=== PATIENT | female | born 1955 | race Caucasian/White ===

== ENCOUNTER 2020-06-16 07:35 | Outpatient (CLI) | payer MEDICARE, SELFPAY ==
--- NOTE | 2020-06-19 12:55 | WPDSIXMINUTE ---
Six Minute Walk Six Minute Walk: The patients O2 sats started at 98% and dropped as low as 96% Total walk distance 91.44 meters conclusion: This patient does not qualify for home oxygen use
== END 2020-06-16 07:36 | disposition home or self-care (01) ==
PROVIDERS: PCP Family Medicine; Visit Provider Nurse Practitioner Family
DX: J96.10 Chronic respiratory failure, unspecified whether with hypoxia or hypercapnia (principal)
CPT/HCPCS: 94618

== ENCOUNTER → 2021-03-10 01:16 | Outpatient (CLI) | payer MEDICARE, SELFPAY ==
[2021-03-10 16:44] LABS: SARS-CoV-2 RNA PCR Negative
== END ==
PROVIDERS: PCP Family Medicine; Visit Provider Internal Medicine Gastroenterology
DX: Z01.812 Encounter for preprocedural laboratory examination (principal); Z20.822 Contact with and (suspected) exposure to COVID-19
CPT/HCPCS: C9803; U0003; U0005

== ENCOUNTER 2021-03-14 00:21 | Day surgery (SDC) | payer MEDICARE, SELFPAY ==
[2021-02-26 11:30] VITALS: BMI 26.1
[2021-03-14 06:19] VITALS: BMI 25.6
[2021-03-14] MEDS: LACTATED RINGERS 1,000 ML 150 ML IV CONT (06:36)
[2021-03-14 06:37] VITALS: BP 126/75; PULSE 86; RESP 20; TEMP 36.8; O2SAT 97
[2021-03-14 06:37] LABS: Glucose Point of Care 150 mg/dl (65-105)
--- NOTE | 2021-03-14 06:57 | WPDGICN ---
Assessment and Plan Assessment and plan (1) Family history of colon cancer in mother: Code(s): Z80.0 - Family history of malignant neoplasm of digestive organs Status: Acute Assessment and Plan: Patient presents for surveillance colonoscopy because of a family history of colon cancer in her mother. Plan is for colonoscopy now and at 5 year intervals further recommendations will be given after endoscopy. GI Consult Note Consult date/time: 03/14/21 06:57 HPI: Kristy Amaya is a 65 year old female Presents for screening colonoscopy. Patient reports that her mother had colon cancer. Patient states that her own weight appetite bowel movements are normal. She denies abdominal pain. She has had no blood in her bowel movements. Her last colonoscopy was 2013. She presents today for screening colonoscopy. Patient's past medical history is significant for multiple sclerosis this left her somewhat weak. Patient also has a past medical history of a bile duct injury during cholecystectomy. She has required biliary stents in the past but none recently. Most recent follow-up reveals that liver function test apparently returned to normal with good liver function. Review of Systems Review of Systems: All systems reviewed & are unremarkable except as noted in HPI and below PMFSH Past Medical History Medical History Ambulatory dysfunction Chronic respiratory failure DVT prophylaxis Essential hypertension with goal blood pressure less than 150/90 Neuromyelitis optica Obstructive sleep apnea Osteoporosis Viral illness Family History Family History Father Diabetes mellitus Family history of congestive heart failure Mother Diabetes mellitus Hypertension Family history of Alzheimer's disease Social History Social History Social History: pt started earyly 70's and quit early 90's (73-92) Smoking packs per day: 2 Smoking cigarettes per day: 40.0 Years smoked: 20 Smoking pack-years: 40.00 Smoking status: Former smoker Smoking end date: 09/08/91 Additional smoking assessment comments: 21 pack year Alcohol intake: current Drinks per week: 2 Living arrangements: alone Spiritual care concerns: No Meds Home Medications and Allergies Home Medications Medication Instructions Recorded Confirmed Type Ca-D3-mag dh-pzic-vwp-marisol-bor 1 tablet PO BID 07/08/19 02/26/21 History Prolia 60 mg SUBCUT [id number] 07/08/19 02/26/21 History amlodipine 5 mg PO DAILY 07/08/19 02/26/21 History baclofen 10 mg PO BID 07/08/19 02/26/21 History fluoxetine [Prozac] 40 mg PO DAILY 07/08/19 02/26/21 History irbesartan 300 mg PO DAILY 07/08/19 02/26/21 History triamterene-hydrochlorothiazid 1 cap PO DAILY 07/08/19 02/26/21 History [Dyazide] mecobalamin (vitamin B12) 1,000 1,000 mcg SUBLINGUAL DAILY 05/26/20 02/26/21 History mcg disintegrating tablet,sublingual omega-3 fatty acids 1,000 mg 1,000 mg PO DAILY 05/26/20 02/26/21 History capsule sod picosulf 10 mg-magnes 3.5 160 ml PO BID #160 ml 02/12/21 02/26/21 Rx gram-citric 12 gram/160 mL oral solution simvastatin 40 mg tablet 20 mg PO HS tablet 02/15/21 02/26/21 History rituximab [Rituxan] IV [id number] 02/26/21 History Allergies Allergy/AdvReac Type Severity Reaction Status Date / Time methylprednisolone Allergy Other Verified 03/14/21 06:17 [From Solu-Medrol] Vital Signs Vital Signs - 24 hr 03/14/21 06:37 Temperature 98.3 F Pulse Rate 86 Respiratory Rate 20 Blood Pressure 126/75 Pulse Oximetry 97 Exam Narrative: Exam Narrative: Physical exam reveals patient be alert. Vital signs stable. HEENT exam is unremarkable. Patient is anicteric. Lungs are clear to auscultation and percussion. Heart is without murmur or extra sounds. Abdominal
--- NOTE | 2021-03-14 07:16 | WPDANESEPPF ---
Anes - Initial Pre Proc Eval Procedure: Operation Date: 03/14/21 07:30 Proposed Procedures p Screening Colonoscopy - Regan Leach MD Date/Time: 03/14/21 07:16 Surgeon: Regan Leach MD Pre Op Diagnosis: neoplasm screening Patient Data Age: 65 Gender: F Height: 1.63 m Weight: 67.7 kg Last Vital Signs Temp 98.3 F 03/14/21 06:37 Pulse 86 03/14/21 06:37 Resp 20 03/14/21 06:37 BP 126/75 03/14/21 06:37 Pulse Ox 97 03/14/21 06:37 Allergies Allergy/AdvReac Type Severity Reaction Status Date / Time methylprednisolone Allergy Other Verified 03/14/21 06:17 [From [facility]] Home Medications Medication Instructions Recorded Confirmed Type Ca-D3-mag cr-pvzk-vey-marisol-bor 1 tablet PO BID 07/08/19 02/26/21 History Prolia 60 mg SUBCUT [id number] 07/08/19 02/26/21 History amlodipine 5 mg PO DAILY 07/08/19 02/26/21 History baclofen 10 mg PO BID 07/08/19 02/26/21 History fluoxetine [Prozac] 40 mg PO DAILY 07/08/19 02/26/21 History irbesartan 300 mg PO DAILY 07/08/19 02/26/21 History triamterene-hydrochlorothiazid 1 cap PO DAILY 07/08/19 02/26/21 History [Dyazide] mecobalamin (vitamin B12) 1,000 1,000 mcg SUBLINGUAL DAILY 05/26/20 02/26/21 History mcg disintegrating tablet,sublingual omega-3 fatty acids 1,000 mg 1,000 mg PO DAILY 05/26/20 02/26/21 History capsule sod picosulf 10 mg-magnes 3.5 160 ml PO BID #160 ml 02/12/21 02/26/21 Rx gram-citric 12 gram/160 mL oral solution simvastatin 40 mg tablet 20 mg PO HS tablet 02/15/21 02/26/21 History rituximab [Rituxan] IV [id number] 02/26/21 History Laboratory Tests 03/14/21 06:34 POC Capillary Glucose 150 mg/dl H mg/dl (65-105) Patient hx anesthesia problems: none Family hx anesthesia problems: none PMFSH Past Medical History Medical History Ambulatory dysfunction Chronic respiratory failure DVT prophylaxis Essential hypertension with goal blood pressure less than 150/90 Neuromyelitis optica Obstructive sleep apnea Osteoporosis Viral illness Family History Family History Father Diabetes mellitus Family history of congestive heart failure Mother Diabetes mellitus Hypertension Family history of Alzheimer's disease Social History Social History Social History: pt started earyly 70's and quit early 90's (-) Smoking packs per day: 2 Smoking cigarettes per day: 40.0 Years smoked: 20 Smoking pack-years: 40.00 Smoking status: Former smoker Smoking end date: 09/08/91 Additional smoking assessment comments: 21 pack year Alcohol intake: current Drinks per week: 2 Living arrangements: alone Spiritual care concerns: No Anes - Eval Final PreProcedure Day of Procedure 03/14/21 07:16 Patient weight: overweight Heart: regular rate and rhythm Lungs: clear to auscultation Airway: Mallampati scale class II Neurological: alert and oriented Last oral intake: >/= 8 hours ASA classification: III Emergent: no Anesthetic plan: proceed Anesthesia type and monitoring: general GIVS and standard monitoring Informed Consent: The patient's anesthetic plan and its attendant risks and benefits were discussed with the patient/family/POA. Questions were solicited and answers provided to the satisfaction of the patient/family/POA.
[2021-03-14 07:46] VITALS: BP 111/70; PULSE 72; RESP 22; O2SAT 96
[2021-03-14 07:56] VITALS: BP 110/64; PULSE 74; RESP 20; O2SAT 96
[2021-03-14 08:06] VITALS: BP 107/63; PULSE 73; RESP 18; O2SAT 96
== END 2021-03-14 08:15 | disposition home or self-care (01) ==
PROVIDERS: PCP Family Medicine; Visit Provider Internal Medicine Gastroenterology
PROC: 0DJD8ZZ Inspection of Lower Intestinal Tract, Via Natural or Artificial Opening Endoscopic (ICD-10-PCS; CPT 45378; principal; 2021-03-14 07:30)
DX: Z12.11 Encounter for screening for malignant neoplasm of colon (principal); Z80.0 Family history of malignant neoplasm of digestive organs; I10 Essential (primary) hypertension; J96.10 Chronic respiratory failure, unspecified whether with hypoxia or hypercapnia; G47.33 Obstructive sleep apnea (adult) (pediatric); M81.0 Age-related osteoporosis without current pathological fracture; G36.0 Neuromyelitis optica [Devic]; Z87.891 Personal history of nicotine dependence; Z79.899 Other long term (current) drug therapy
CPT/HCPCS: G0105; 82948; J2704; J7120

== ENCOUNTER 2021-09-08 15:42 | Inpatient (IN) | payer MEDICARE, SELFPAY ==
[2021-09-08] VITALS (8 sets, daily range): BP systolic 97–135; BP diastolic 39–71; PULSE 66–112; RESP 16–22; TEMP 36.7–37.3; O2SAT 90–99; BMI 27.6
--- NOTE | ~2021-09-08 | XR_ITS ---
EXAMINATION: XR chest 1V portable EXAM DATE: 09/24/2021 08:05 INDICATION: COVID FU TECHNIQUE: Portable AP frontal chest x-ray was obtained. Comparison is made to prior examination from 09/20/2021. FINDINGS: Extensive left-sided, moderate right-sided airspace disease, overall improvement in right-s ided density. Probably no significant change in the left-sided airspace disease. No pneumothorax. Car diomediastinal silhouette is normal. Mild thoracic scoliosis. IMPRESSION: 1. Bilateral COVID pneumonia, improvement on the right hip probably unchanged on the left. 2. No pneumothorax. Reviewed, dictated and finalized at location G. IRATORY TECH
--- NOTE | ~2021-09-08 | XR_ITS ---
EXAMINATION: XR chest 1V portable DATE: 09/13/2021 13:20 INDICATION: Shortness of breath. TECHNIQUE: A single frontal view of the chest was obtained. COMPARISON: Chest 2 views 09/08/2021, CT abdomen and pelvis 09/08/2021 FINDINGS: There are airspace opacities in the lower lung zones. There is a small left pleural effusio n. No pneumothorax. The heart size is normal. IMPRESSION: 1. Worsened airspace opacities in the lower lung zones, consistent with atelectasis versus pneumonia. 2. New small left pleural effusion. Reviewed, dictated and finalized at location A. SHING MACHINE TENDER IMPRESSION: 1. Worsened airspace opacities in the lower lung zones, consistent with atelect asis versus pneumonia. 2. New small left pleural effusion.
--- NOTE | ~2021-09-08 | XR_ITS ---
EXAMINATION: XR chest 1V portable EXAM DATE: 09/18/2021 08:56 INDICATION: COVID TECHNIQUE: Portable AP frontal chest x-ray was obtained. Comparison is made to prior examination from 09/13/2021. FINDINGS: Moderate amount of bilateral ill-defined acute airspace disease, with mild improvement in t he lower lung zones but development of additional ill-defined airspace disease in both midlung zones, probably COVID pneumonia given history provided. Small left pleural effusion. Cardiomediastinal silh ouette is normal. Mild to moderate thoracic dextroscoliosis. No pneumothorax. IMPRESSION: 1. Moderate amount of ill-defined airspace disease consistent with COVID pneumonia. 2. Small left pleural effusion. Reviewed, dictated and finalized at location A. IX WORKER IMPRESSION: 1. Moderate amount of ill-defined airspace disease consistent with COVID pneum onia. 2. Small left pleural effusion.
--- NOTE | ~2021-09-08 | XR_ITS ---
EXAMINATION: XR chest 2V EXAM DATE: 09/08/2021 21:22 INDICATION: Weakness, vomiting since this morning. TECHNIQUE: Frontal and lateral projections of the chest obtained and reviewed. Comparison is made to prior examination from 07/08/2019. FINDINGS: The lungs are clear. There are no pleural effusions. The cardiomediastinal silhouette is within normal limits. There is no pneumothorax suspected. The bones and soft tissues are unremarkab le. IMPRESSION: No acute cardiopulmonary findings. Reviewed, dictated and finalized at location A. MIDWIFE
--- NOTE | ~2021-09-08 | CT_ITS ---
EXAMINATION: CT abdomen pelvis w con EXAM DATE: 09/08/2021 20:04 INDICATION: Nonlocalized abdominal pain. Emesis. TECHNIQUE: Spiral CT of the abdomen and pelvis was performed following intravenous injection of 100 m L Omnipaque 350. Axial, coronal and sagittal images of the abdomen and pelvis were reviewed. The do se-length product (DLP) for this examination was 526.18 mGy-cm. The exposure was tailored according to patient size (auto mA exposure control), and iterative reconstruction (ASIR) was used as additiona l dose reduction technique. There is no prior study for comparison. FINDINGS: Low-density left adrenal gland lesion measuring 1.2 cm, statistically most likely adenoma b ut not meeting density criteria on this postcontrast exam. Mild nonspecific fat stranding surrounding the left adrenal gland. Liver, spleen, pancreas are unremarkable. There are surgical clips in the g allbladder fossa. Some biliary duct dilation which is common finding following cholecystectomy. Por gopi and splenic veins are patent. Kidneys enhance symmetrically. There is no hydronephrosis. There is a 3 cm left renal cyst. There is 1.7 cm fibroid. No adnexal mass. There is bladder diverticulum anteriorly measuring about 2.7 cm with moderate bladder distention. There is no retroperitoneal or p elvic lymphadenopathy. There is mild scattered arteriosclerotic disease. The appendix is normal. The stomach and small bowel are unremarkable. There is expected amount of c olonic stool. No free intraperitoneal gas. The heart is normal in size. There are no pericardial or pleural effusions. Right lower lobe calcified granuloma. Mild emphysema. There is total left h ip arthroplasty. Sclerotic focus in the right iliac crest measuring 1 cm, probably bone island given that no other sclerotic foci are present IMPRESSION: 1. No acute intra-abdominal findings. 2. Mild nonspecific fat stranding surrounding left adrenal gland. Small left adrenal mass most likel y adenoma. 3. Bladder diverticulum. 4. Fibroid. Reviewed, dictated and finalized at location A. CAL BILLING CLERK IMPRESSION: 1. No acute intra-abdominal findings. 2. Mild nonspecific fat stranding surrounding left adrenal gland. Small left a drenal mass most likely adenoma. 3. Bladder diverticulum. 4. Fibroid.
--- NOTE | ~2021-09-08 | US_ITS ---
EXAMINATION: US abdomen limited DATE: 09/15/2021 14:21 INDICATION: Elevated liver function tests TECHNIQUE: Multiple grayscale and Doppler ultrasound images of the abdomen were obtained. COMPARISON: CT, 09/08/2021 FINDINGS: Bowel gas obscures visualization of the pancreas. The visualized portions of the pancreas a re unremarkable. The liver is normal with normal echogenicity and echotexture. No surface nodularity. Normal hepatopetal flow in the main portal vein. The gallbladder is surgically absent. The normal co mmon bile duct measures 4 mm. There was no sonographic Richards sign. IMPRESSION: 1. No sonographic correlate for the patient's symptoms. Reviewed, dictated and finalized at location F. OYEE COMMUNICATIONS COORDINATOR
--- NOTE | ~2021-09-08 | MR_ITS ---
EXAMINATION: MR MRCP wo/w con/w 3D wo ind DATE: 09/17/2021 10:26 INDICATION: Abnormal liver function tests. TECHNIQUE: Magnetic resonance imaging (MRI) of the abdomen was performed without and with 15 mL Multi Conrad intravenous contrast. Sequences included coronal T2-weighted FS FSE, coronal T2-weighted FSE, a xial T1-weighted LAVA, coronal FS FIESTA, axial dual-echo T1-weighted SPGR, coronal lava-FLEX, sagitt al T2-weighted FSE, axial T2-weighted FSE, and axial DWI. Thick-slab T2-weighted FSE images were obta ined for magnetic resonance cholangiopancreatography (MRCP). Maximum intensity projection 3-D reconst ructions of the volumetric data were created by the technologist. Postcontrast sequences included cor onal LAVA-flex and time course of axial T1-weighted LAVA. COMPARISON: Abdomen ultrasound 09/15/2021, CT abdomen and pelvis 09/08/2021 FINDINGS: ABDOMEN MRI: There are small pleural effusions, right worse than left. 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 There are areas of increased T2-weighted signal int ensity and increased diffusion-weighted signal intensity and hyperenhancement in anterior segment rig ht hepatic lobe. The gallbladder is absent. The spleen, pancreas, and right adrenal gland are normal. There is thickening of left adrenal gland, likely benign. There are cysts in the kidneys measuring u p to 2.9 cm on the left. There are no dilated loops of bowel. There is trace ascites. There are no pa thologically enlarged lymph nodes. ABDOMEN MRCP: The common duct is normal and measures 6 mm. No choledocholithiasis. IMPRESSION: 1. 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 Abnormal signal in anterior segment right hepatic lobe, consistent with ischemia/infarct. 2. Small pleural effusions, right worse than left. Reviewed, dictated and finalized at location B. RVISOR BOATBUILDERS WOOD IMPRESSION: 1. 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 Abnor mal signal in anterior segment right hepatic lobe, consistent with ischemia/inf arct. 2. Small pleural effusions, right worse than left.
--- NOTE | ~2021-09-08 | XR_ITS ---
EXAMINATION: XR chest 1V portable DATE: 09/20/2021 05:44 INDICATION: COVID TECHNIQUE: frontal view of the chest was obtained. COMPARISON: Chest radiograph dated 09/18/2021 FINDINGS: No significant change attending for differences in technique in interstitial and groundglass opacitie s throughout both lungs. More dense and bandlike discoid atelectasis/scarring at the left lower lung zone. Tiny calcified nodule at the lateral right lower lung zone consistent with old granulomatous di sease. No pleural effusion or pneumothorax. The cardiomediastinal silhouette is normal. Mild lower th oracic levocurvature. Severe left glenohumeral osteoarthritis. IMPRESSION: 1. No significant change in diffuse bilateral lung disease which could represent pneumonia, pulmonary edema or combination thereof. Reviewed, dictated and finalized at location A. ECTION CARD CLERK IMPRESSION: 1. No significant change in diffuse bilateral lung disease which could represen t pneumonia, pulmonary edema or combination thereof.
[2021-09-08 18:26] LABS: Hematocrit 42.6 % (37.0-47.0); Hemoglobin 14.2 g/dL (12.0-15.0); Mean Corpuscular HGB Conc 33.3 g/dl (32-36); Mean Corpuscular Hemoglobin 31.6 pg (26-34); Mean Corpuscular Volume 94.9 fl (80-100); Mean Platelet Volume 10.2 fl (7.4-10.4); Platelet Count Result 235 k/mm3 (150-375); Red Blood Count 4.49 M/mm3 (4.2-5.4); Red Cell Distribution Width 14.1 % (11.5-14.5); White Blood Count 20.9 K/mm3 (4.5-10.0)
[2021-09-08 18:36] LABS: INR 1.2; Lactic Acid Reflex 2.4 mmol/L (0.7-2.1)
[2021-09-08 18:37] LABS: Alanine Aminotransferase 56 U/L (4-35); Albumin Level 4.4 g/dL (3.5-5.1); Alkaline Phosphatase 236 U/L (38-126); Anion Gap 10 mmol/L (8-16); Aspartate Amino Transferase 53 U/L (14-36); Bilirubin,Total 1.6 mg/dL (0.2-1.3); Blood Urea Nitrogen 32 mg/dL (7-17); Calcium 10.3 mg/dL (8.4-10.2); Carbon Dioxide 31 mmol/L (22-30); Chloride 99 mmol/L (98-107); Creatine Kinase 55 U/L (30-135); Estimated CRCL calculation 35 ml/min; Estimated Glomerular Filt Rate 45; Glucose 131 mg/dL (65-110); Partial Thromboplastin Time 31.5 SECONDS (22.3-36.8); Potassium 3.2 mmol/L (3.4-5.0); Sodium 140 mmol/L (137-145)
[2021-09-08 18:50] LABS: Band Neutrophils Percent 18 % (0-6); Monocytes Percent Manual 1 % (3-9); Neutrophils Absolute Manual 20.48 K/mm3 (1.7-7.2); Neutrophils Percent Manual 80 % (46-73); Platelet Estimate Adequate (Adequate); Total Cells Counted 100
[2021-09-08 18:54] LABS: Add Urine Microscopic? YES; Appearance Urine Clear (Clear); Bacteria Urine Trace /hpf; Bilirubin Urine Negative (Negative); Blood Urine 1+ (Negative); Color Urine Yellow (Yellow); Glucose Urine UA Negative (Negative); Ketones Urine Negative (Negative); Leukocyte Esterase Ur 2+ LEU/UL (Negative); Mucus Urine Rare /lpf; Nitrate Urine Negative (Negative); Protein Urine Negative (Negative); Specific Grav Ur 1.011 (1.001-1.035); Squamous Epithelial Cell Urine Rare /hpf (Few); Urobilinogen Urine Negative mg/dL (<2.0); WBC Urine >75 /hpf
[2021-09-08] MEDS: SODIUM CHLORIDE 0.9% IV 1,000 ML 999 ML IV CONT (19:09)
[2021-09-08] MEDS: SODIUM CHLORIDE 0.9% IV 2,000 ML 999 ML (20:02)
[2021-09-08] MEDS: SODIUM CHLORIDE 0.9% IV 2,100 ML/1,000 ML BAG 475.69 ML IV CONT (20:02)
--- NOTE | 2021-09-08 20:39 | ED.WEAKNESS ---
HPI - Weakness General Chief complaint: Weakness Stated complaint: N/V, fever Time Seen by Provider: 09/08/21 18:31 History of Present Illness HPI Narrative: Patient is a 65-year-old female who presents to the ER with weakness. Unable to get out of bed today and walk. Patient reports diarrhea x1 over the last day. No urinary frequency urgency or dysuria. No runny nose or sore throat or productive cough. She has been vaccinated against COVID-19 and has had her booster. She did have an antibody test after initial COVID-19 vaccination series and she did not make antibodies, she believes this is because she is immunosuppressed. She has a MS type syndrome for which she is receiving rituximab. Related Data Home Medications Medication Instructions Recorded Confirmed Ca-D3-mag rh-suvu-usu-marisol-bor 1 tablet PO BID 07/08/19 02/26/21 Prolia 60 mg SUBCUT [id number] 07/08/19 02/26/21 amlodipine 5 mg PO DAILY 07/08/19 02/26/21 baclofen 10 mg PO BID 07/08/19 02/26/21 fluoxetine [Prozac] 40 mg PO DAILY 07/08/19 02/26/21 irbesartan 300 mg PO DAILY 07/08/19 02/26/21 triamterene-hydrochlorothiazid 1 cap PO DAILY 07/08/19 02/26/21 [Dyazide] mecobalamin (vitamin B12) 1,000 1,000 mcg SUBLINGUAL DAILY 05/26/20 02/26/21 mcg disintegrating tablet,sublingual omega-3 fatty acids 1,000 mg 1,000 mg PO DAILY 05/26/20 02/26/21 capsule simvastatin 40 mg tablet 20 mg PO HS tablet 02/15/21 02/26/21 rituximab [Rituxan] IV [id number] 02/26/21 Allergies Allergy/AdvReac Type Severity Reaction Status Date / Time methylprednisolone Allergy Other Verified 03/14/21 06:17 [From Solu-Medrol] Review of Systems Review of Systems: All systems reviewed & are unremarkable except as noted in HPI and below Constitutional: Constitutional: Denies chills, Reports fever(s) and Reports weakness ENT: Denies nasal congestion and Denies sore throat Gastrointestinal: Gastrointestinal: Denies abdominal pain, Reports diarrhea, Denies nausea and Denies vomiting Genitourinary: Genitourinary: Denies nocturia, Denies dysuria and Denies flank pain Neurologic: Denies focal weakness, Denies numbness and Reports weakness PMFSH Past Medical History Medical History Ambulatory dysfunction Chronic respiratory failure DVT prophylaxis Essential hypertension with goal blood pressure less than 150/90 Neuromyelitis optica Obstructive sleep apnea Osteoporosis Viral illness Family History Family History Father Diabetes mellitus Family history of congestive heart failure Mother Diabetes mellitus Hypertension Family history of Alzheimer's disease Social History Social History Social History: pt started earyly 's and quit early 's (-) Smoking packs per day: 2 Smoking cigarettes per day: 40.0 Years smoked: 20 Smoking pack-years: 40.00 Smoking status: Former smoker Smoking end date: 09/08/91 Additional smoking assessment comments: 21 pack year Alcohol intake: current Drinks per week: 2 Spiritual care concerns: No Exam Narrative: GENERAL: Chronically ill-appearing, well-nourished, and in no acute distress. HEAD: Normocephalic, atraumatic. EYES: PERRL and EOMI. ENT: Mucous membranes moist. CHEST: Clear to auscultation. No respiratory distress. HEART: Tachycardic and regular. Normal peripheral pulses. ABDOMEN: Soft, nontender, nondistended. EXTREMITIES: Normal range of motion. No edema. SKIN: Warm, dry, no rash. NEURO: Alert and oriented x3. Course Course Emergency Course: Admit for IV fluids and IV antibiotics. Patient awake alert and oriented x3. Understands lab results. Vital Signs Vital signs: Vital Signs Temperature 99.2 F 09/08/21 15:44 Pulse Rate 112 H 09/08/21 15:44 Respiratory Rate 20 09/08/21 15:44 Blood Pressure 135/59 L
[2021-09-08 21:23] LABS: Reflex Lactic Acid Yes or No Add Lactic
[2021-09-08] MEDS: POTASSIUM CHLORIDE INJ 40 MEQ in SODIUM CHLORIDE 0.9% IV 500 ML 130 MEQ IVPB (21:54)
[2021-09-08 22:56] LABS: Lactic Acid 1.4 mmol/L (0.7-2.1)
[2021-09-09] VITALS (10 sets, daily range): BP systolic 108–147; BP diastolic 45–86; PULSE 66–123; RESP 12–18; TEMP 35.5–37; O2SAT 90–99
--- NOTE | 2021-09-09 00:13 | ADMGEN ---
This patient, Kristy Amaya, was admitted to IMU Room 205-01 on 09/08/21 at 2334. Patient/family oriented to hospital policies and general routines including ID bracelet, bed and alarms, visiting hours, pain management, procedures, bathroom and other care routines, personal items, smoking policy, room service/diet, and visiting hours. Information on how to activate the Rapid Response Team has been discussed. Patient/Family are encouraged to report perceived risks to care and to ask questions if they do not understand what they are told or what they should do.
[2021-09-09] MEDS: SODIUM CHLORIDE 0.9% IV 1,000 ML 125 ML IV CONT (01:01)
--- NOTE | 2021-09-09 04:58 | PM.IMHP ---
H&P: HPI History of Present Illness Date/Time: 09/09/21 04:58 Chief Complaint: ?Could not get out of bed? 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 She reports that on she woke up and was so weak that she could not even roll over in bed. She developed worsening neuropathy which is common when she becomes ill. She spiked a fever of 102. She had decreased oral intake and had some mild nausea but no vomiting. She stayed in bed for most of the day on Friday than on Friday she reported that she felt somewhat better in the morning but in the afternoon she again spiked a high fever. She reports that she has a chronic dry cough that is unchanged from baseline. She denies any rhinorrhea, nasal congestion or sore throat. She received a COVID vaccine and she had her booster in June. She did have antibody testing after her initial COVID vaccine series in did not make antibodies. This is been attributed to her treatment with rituximab. She reports that she is very careful about social contact and has not had any known ill contacts. Review of Systems Review of Systems: 12 systems were reviewed with pertinent positives and negatives per HPI. Except as documented in the HPI, all other systems were reviewed and are negative. [facility] Past Medical History Medical History (Updated 09/09/21 @ 08:06 by Bessy James DO) Ambulatory dysfunction Anxiety and depression Chronic respiratory failure DVT prophylaxis Essential hypertension with goal blood pressure less than 150/90 GI bleed Due to high-dose steroids Neuromyelitis optica (2011) Obstructive sleep apnea Osteoporosis Peripheral neuropathy Type 2 diabetes mellitus Viral illness Surgical History Surgical History (Updated 09/09/21 @ 07:42 by Bessy James DO) Hx of cholecystectomy (~2003) Family History Family History Father Diabetes mellitus Family history of congestive heart failure Mother Diabetes mellitus Family history of Alzheimer's disease Hypertension CLL (chronic lymphocytic leukemia) Sibling CAD (coronary artery disease) Heart problem Lymphoma Diabetes mellitus Hypertension Sibling Heart problem Sibling Breast cancer Family history of Alzheimer's disease Social History Social History (Updated 09/09/21 @ 07:45 by Bessy James DO) Social History: She has been for almost 44 years. 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 She used to smoke 2 packs of cigarettes per day for about 20 years but quit smoking in 1981. She drinks 1-2 alcohol beverages a week at most. She ambulates with a walker. Primary care physician: Dr. Nathan Segal Code status: DNR Surrogate decision maker: Smoking packs per day: 2 Smoking cigarettes per day: 40.0 Years smoked: 20 Smoking pack-years: 40.00 Smoking status: Former smoker Tobacco type: cigarettes Smoking end date: 09/08/91 Additional smoking assessment comments: 21 pack year Alcohol intake: never Drinks per week: 2 Substance use: never Substance use type: does not use Spiritual care concerns: No Meds Home Medications and Allergies Home Medications Medication Instructions Recorded Confirmed Type Ca-D3-mag pi-obkm-tct-marisol-bor 1 tablet PO BID 07/08/19 09/09/21 History amlodipine 5 mg PO HS 07/08/19 09/09/21 History baclofen 10 mg PO QAM 07/08/19 09/09/21 History fluoxetine [Prozac] 40 mg PO DAILY 07/08/19 09/09/21 History irbesartan 300 mg PO HS 07/08/19 09/09/21 History triamterene-hydrochlorothiazid 1 cap PO DAILY 07/08/19 09/09/21 History [Dyazide] mecobalamin (vitamin B12) 1,000 1,000 mcg SUBLINGUAL DAILY 05/26/20 09/09/21 History mcg disintegrating tablet,sublingual omeg
[2021-09-09 05:33] LABS: Hematocrit 34.5 % (37.0-47.0); Hemoglobin 11.3 g/dL (12.0-15.0); Mean Corpuscular HGB Conc 32.8 g/dl (32-36); Mean Corpuscular Hemoglobin 31.8 pg (26-34); Mean Corpuscular Volume 97.2 fl (80-100); Mean Platelet Volume 11.1 fl (7.4-10.4); Platelet Count Result 178 k/mm3 (150-375); Red Blood Count 3.55 M/mm3 (4.2-5.4); Red Cell Distribution Width 14.3 % (11.5-14.5); White Blood Count 31.1 K/mm3 (4.5-10.0)
[2021-09-09 05:43] LABS: Alanine Aminotransferase 72 U/L (4-35); Albumin Level 3.4 g/dL (3.5-5.1); Alkaline Phosphatase 172 U/L (38-126); Anion Gap 9 mmol/L (8-16); Aspartate Amino Transferase 65 U/L (14-36); Bilirubin,Total 0.8 mg/dL (0.2-1.3); Blood Urea Nitrogen 26 mg/dL (7-17); Calcium 8.5 mg/dL (8.4-10.2); Carbon Dioxide 20 mmol/L (22-30); Chloride 111 mmol/L (98-107); Estimated CRCL calculation 47 ml/min; Estimated Glomerular Filt Rate 55; Glucose 165 mg/dL (65-110); Sodium 140 mmol/L (137-145)
[2021-09-09 08:02] LABS: Band Neutrophils Percent 12 % (0-6); Neutrophils Absolute Manual 29.54 K/mm3 (1.7-7.2); Neutrophils Percent Manual 83 % (46-73); Total Cells Counted 100
[2021-09-09 08:03] LABS: Lymphocytes Absolute Manual 0.93 K/mm3 (1.1-4.5); Lymphocytes Percent Manual 3 % (18-44)
[2021-09-09 08:04] LABS: Monocytes Absolute Manual 0.62 K/mm3 (0.1-0.90); Monocytes Percent Manual 2 % (3-9)
[2021-09-09 08:07] LABS: Platelet Estimate Adequate (Adequate)
[2021-09-09] MEDS: OMEGA 3 POLYUNSAT FATTY ACIDS 1 GM CAP PO (08:48)
[2021-09-09] MEDS: FLUoxetine HCL 20 MG CAPSULE 40 MG PO (08:48)
--- NOTE | 2021-09-09 08:52 | PM.IMPN ---
Progress Note: A&P Assessment and Plan (1) Sepsis: Qualifiers: Acute renal failure type: unspecified Sepsis acute organ dysfunction status: with acute organ dysfunction Sepsis type: sepsis due to unspecified organism Severe sepsis acute organ dysfunction type: acute renal failure Severe sepsis shock status: without septic shock Qualified Code(s): A41.9 - Sepsis, unspecified organism; R65.20 - Severe sepsis without septic shock; N17.9 - Acute kidney failure, unspecified Code(s): A41.9 - Sepsis, unspecified organism Status: Acute Assessment and Plan: Will continue with IV fluids. Monitor culture report. (2) Acute UTI: Code(s): N39.0 - Urinary tract infection, site not specified Status: Acute Assessment and Plan: Continue with IV antibiotics. Monitor culture report (3) Hypokalemia: Code(s): E87.6 - Hypokalemia Status: Acute Assessment and Plan: Replace and monitor (4) Essential hypertension: Code(s): I10 - Essential (primary) hypertension Status: Acute Assessment and Plan: Stable on current meds. Subjective Date/time seen: 09/09/21 08:52 Patient was seen during the morning rounds today. Patient complains of having generalized weakness. No shortness of breath or chest pain. No abdominal pain, no nausea, no vomiting. Mood stable. Review of Systems Review of Systems: All systems reviewed & are unremarkable except as noted in HPI and below (the history and physical examination.) Exam Narrative: PHYSICAL EXAM: WEIGHT 73 kg BMI 27.6 General: Chronically ill-appearing, well-nourished HEENT: Mucous membranes are moist, good dentition, pupils are equal and reactive, positive conjunctival pallor Respiratory: Clear to auscultation bilaterally, no increased work of breathing Cardiovascular: Regular rate, regular rhythm, 2+ bilateral radial pedal pulses Gastrointestinal: Soft, nontender, nondistended, positive bowel sounds Skin: Generalized pallor, non jaundice Musculoskeletal: No clubbing, cyanosis or edema, 5/5 sql engineer strength, 5 of 5 strength and state leg Neurological: Alert and oriented, speech is clear, no facial asymmetry Psychiatric: Appropriate mood and affect, pleasant and cooperative : Deferred Hematologic/lymphatic: No anterior cervical or submandibular lymphadenopathy, no petechiae, no bruising Objective Data Vital Signs Vital Signs: Vital Signs - 24 hr 09/08/21 15:44 09/08/21 17:58 09/08/21 20:03 Temperature 37.3 C Pulse Rate 112 H 66 95 Respiratory Rate 20 18 18 Blood Pressure 135/59 L 113/62 97/51 L Pulse Oximetry 95 90 99 09/08/21 23:09 09/08/21 23:22 09/08/21 23:23 Temperature 36.7 C Pulse Rate 79 85 86 Respiratory Rate 20 22 H Blood Pressure 97/71 L Pulse Oximetry 96 96 09/08/21 23:25 09/08/21 23:40 09/09/21 00:00 Temperature 36.9 C Pulse Rate 85 71 79 Respiratory Rate 20 16 Blood Pressure 106/39 L Pulse Oximetry 96 98 09/09/21 02:00 09/09/21 03:24 09/09/21 03:55 Temperature 37.0 C Pulse Rate 70 73 73 Respiratory Rate 17 17 Blood Pressure 109/54 L Pulse Oximetry 99 99 09/09/21 04:00 09/09/21 06:00 09/09/21 08:00 Temperature 36.6 C Pulse Rate 66 69 123 H Respiratory Rate 18 Blood Pressure 134/86 Pulse Oximetry 90 Intake/Output Intake/Output: Intake & Output 09/06/21 09/07/21 09/08/21 09/09/21 23:59 23:59 23:59 23:59 Intake Total 4050 620 Output Total 500 Balance 4050 120 Meds/Results Medications: Active Medications Generic Name Dose Route Start Last Admin Trade Name Freq PRN Reason Stop Dose Admin Acetaminophen 650 mg 09/08/21 21:36 Acetaminophen 325 Mg Tablet PO Q4H PRN Mild Pain (1-3) or Fever Hydrocodone Bitart/Acetaminophen 1 tab 09/08/21 21:36 Hydrocodone/Acetaminophen (*Crx) 5-325 Mg Tablet PO Q4H PRN Pain Rated 4-6 Amlodipine Besylate 5 mg 09/09/21 21:00 Amlodipine Besyl
[2021-09-09] MEDS: SODIUM CHLORIDE 0.9% IV 1,000 ML 83 ML IV CONT ×2 (09:09→23:33)
[2021-09-09] MEDS: PIPERACILLIN/TAZOBACTAM SOD 4.5 GM in SODIUM CHLORIDE 0.9% IV 100 ML 200 ML IVPB ×4 (09:10→23:33)
[2021-09-09] MEDS: BACLOFEN 10 MG TABLET PO (09:11)
[2021-09-09] MEDS: HEPARIN SODIUM 5,000 UNITS/ML VIAL 5000 UNITS SUB-Q ×2 (10:47→20:39)
[2021-09-09] MEDS: ACETAMINOPHEN 325 MG TABLET 650 MG PO (12:53)
[2021-09-09] MEDS: amLODIPine BESYLATE 5 MG TABLET PO (20:39)
[2021-09-09] MEDS: BACLOFEN 10 MG TABLET 20 MG PO (20:39)
[2021-09-09] MEDS: SIMVASTATIN 20 MG TABLET PO (20:40)
[2021-09-10] VITALS: PULSE 74
[2021-09-10] MEDS: ACETAMINOPHEN 325 MG TABLET 650 MG PO (03:01)
[2021-09-10 04:00] VITALS: BP 92/69; PULSE 75; RESP 16; TEMP 37.2; O2SAT 98
[2021-09-10 05:33] LABS: Basophils Absolute Auto 0.1 K/mm3 (0.0-0.1); Basophils Percent Auto 0.2 % (0.2-1.2); Eosinophils Absolute Auto 0.1 K/mm3 (0-0.3); Eosinophils Percent Auto 0.2 % (0-4.4); Hematocrit 34.8 % (37.0-47.0); Hemoglobin 11.5 g/dL (12.0-15.0); Immature Granulocyte Absolute 0.32 K/mm3 (0.00-0.031); Immature Granulocyte Percent A 1.4 % (0-0.5); Lymphocytes Absolute Auto 0.44 K/mm3 (0.9-3.2); Mean Corpuscular Hemoglobin 31.6 pg (26-34); Mean Corpuscular Volume 95.6 fl (80-100); Mean Platelet Volume 11.3 fl (7.4-10.4); Monocytes Percent Auto 4.4 % (2.6-8.5); Neutrophils Absolute Auto 20.7 K/mm3 (1.3-6.7); Neutrophils Percent Auto 91.8 % (45.5-73.1); Platelet Count Result 160 k/mm3 (150-375); Red Blood Count 3.64 M/mm3 (4.2-5.4); Red Cell Distribution Width 14.4 % (11.5-14.5); White Blood Count 22.5 K/mm3 (4.5-10.0)
[2021-09-10 05:47] LABS: Alanine Aminotransferase 74 U/L (4-35); Albumin Level 3.2 g/dL (3.5-5.1); Alkaline Phosphatase 239 U/L (38-126); Anion Gap 10 mmol/L (8-16); Aspartate Amino Transferase 58 U/L (14-36); Bilirubin,Total 1.2 mg/dL (0.2-1.3); Blood Urea Nitrogen 29 mg/dL (7-17); Calcium 8.6 mg/dL (8.4-10.2); Carbon Dioxide 21 mmol/L (22-30); Chloride 109 mmol/L (98-107); Estimated CRCL calculation 48 ml/min; Estimated Glomerular Filt Rate 55; Glucose 108 mg/dL (65-110); Potassium 3.2 mmol/L (3.4-5.0); Sodium 140 mmol/L (137-145)
[2021-09-10] MEDS: PIPERACILLIN/TAZOBACTAM SOD 4.5 GM in SODIUM CHLORIDE 0.9% IV 100 ML 200 ML IVPB ×4 (06:35→23:37)
[2021-09-10 07:55] VITALS: PULSE 57; RESP 18
[2021-09-10 08:00] VITALS: BP 115/48; PULSE 64; RESP 20; TEMP 36.2; O2SAT 98
[2021-09-10] MEDS: FLUoxetine HCL 20 MG CAPSULE 40 MG PO (08:50)
[2021-09-10] MEDS: OMEGA 3 POLYUNSAT FATTY ACIDS 1 GM CAP PO (08:50)
[2021-09-10] MEDS: HEPARIN SODIUM 5,000 UNITS/ML VIAL 5000 UNITS SUB-Q ×2 (08:50→21:47)
[2021-09-10] MEDS: BACLOFEN 10 MG TABLET PO (08:50)
--- NOTE | 2021-09-10 09:41 | PM.IMPN ---
Progress Note: A&P Assessment and Plan (1) Sepsis: Qualifiers: Acute renal failure type: unspecified Sepsis acute organ dysfunction status: with acute organ dysfunction Sepsis type: sepsis due to unspecified organism Severe sepsis acute organ dysfunction type: acute renal failure Severe sepsis shock status: without septic shock Qualified Code(s): A41.9 - Sepsis, unspecified organism; R65.20 - Severe sepsis without septic shock; N17.9 - Acute kidney failure, unspecified Code(s): A41.9 - Sepsis, unspecified organism Status: Acute Assessment and Plan: Will continue with IV fluids. Monitor culture report. (2) Acute UTI: Code(s): N39.0 - Urinary tract infection, site not specified Status: Acute Assessment and Plan: Continue with IV antibiotics. Monitor culture report (3) Hypokalemia: Code(s): E87.6 - Hypokalemia Status: Acute Assessment and Plan: Replace and monitor (4) Essential hypertension: Code(s): I10 - Essential (primary) hypertension Status: Acute Assessment and Plan: Stable on current meds. Additional Plan September 10, 2021 Patient WBC count has decreased to 22. Potassium is slightly low. Plan is to continue with IV antibiotics, replace and monitor potassium. Cultures pending. Subjective Date/time seen: 09/10/21 09:41 Patient was seen during the morning rounds today. Patient is feeling slightly better. No shortness of breath or chest pain. No abdominal pain, nausea, no vomiting. Mood stable. Review of Systems Review of Systems: All systems reviewed & are unremarkable except as noted in HPI and below (the history and physical examination.) Exam Narrative: PHYSICAL EXAM: WEIGHT 73 kg BMI 27.6 General: Chronically ill-appearing, well-nourished HEENT: Mucous membranes are moist, good dentition, pupils are equal and reactive, positive conjunctival pallor Respiratory: Clear to auscultation bilaterally, no increased work of breathing Cardiovascular: Regular rate, regular rhythm, 2+ bilateral radial pedal pulses Gastrointestinal: Soft, nontender, nondistended, positive bowel sounds Skin: Generalized pallor, non jaundice Musculoskeletal: No clubbing, cyanosis or edema, 5/5 crown attacher strength, 5 of 5 strength and state leg Neurological: Alert and oriented, speech is clear, no facial asymmetry Psychiatric: Appropriate mood and affect, pleasant and cooperative : Deferred Hematologic/lymphatic: No anterior cervical or submandibular lymphadenopathy, no petechiae, no bruising Objective Data Vital Signs Vital Signs: Vital Signs - 24 hr 09/09/21 12:00 09/09/21 16:00 09/09/21 20:00 Temperature 35.5 C L 36.8 C 36.9 C Pulse Rate 76 80 105 H Respiratory Rate 18 12 16 Blood Pressure 147/45 H 111/53 L 108/73 Pulse Oximetry 92 90 99 09/10/21 00:00 09/10/21 04:00 09/10/21 07:55 Temperature 37.2 C Pulse Rate 74 75 57 L Respiratory Rate 16 18 Blood Pressure 92/69 L Pulse Oximetry 98 09/10/21 08:00 Temperature 36.2 C L Pulse Rate 64 Respiratory Rate 20 Blood Pressure 115/48 L Pulse Oximetry 98 Intake/Output Intake/Output: Intake & Output 09/07/21 09/08/21 09/09/21 09/10/21 23:59 23:59 23:59 23:59 Intake Total 4050 3260 550 Output Total 900 500 Balance 4050 2360 50 Meds/Results Medications: Active Medications Generic Name Dose Route Start Last Admin Trade Name Freq PRN Reason Stop Dose Admin Acetaminophen 650 mg 09/08/21 21:36 09/10/21 03:01 Acetaminophen 325 Mg Tablet PO 650 mg Q4H PRN Administration Mild Pain (1-3) or Fever Hydrocodone Bitart/Acetaminophen 1 tab 09/08/21 21:36 Hydrocodone/Acetaminophen (*Crx) 5-325 Mg Tablet PO Q4H PRN Pain Rated 4-6 Amlodipine Besylate 5 mg 09/09/21 21:00 09/09/21 20:39 Amlodipine Besylate 5 Mg Tablet PO 5 mg HS NICHOLAS Administration Baclofen 20 mg 09/09/21 21:00 09/09/21 20:39 Baclofen 10 Mg Tabl
[2021-09-10] MEDS: POTASSIUM CHLORIDE 20 MEQ TABLET 40 MEQ PO (10:31)
[2021-09-10] MEDS: SODIUM CHLORIDE 0.9% IV 1,000 ML 83 ML IV CONT (10:31)
[2021-09-10] MEDS: MAGNESIUM OXIDE 400 MG TABLET PO (12:27)
[2021-09-10] MEDS: HYDROcodone/acetaminophen (*CRX) 5-325 MG TABLET 1 TAB PO ×2 (16:22→21:44)
[2021-09-10 19:58] VITALS: BP 130/66; PULSE 70; RESP 14; TEMP 37.3; O2SAT 94
[2021-09-10] MEDS: BACLOFEN 10 MG TABLET 20 MG PO (21:46)
[2021-09-10] MEDS: SIMVASTATIN 20 MG TABLET PO (21:47)
[2021-09-10] MEDS: amLODIPine BESYLATE 5 MG TABLET PO (21:48)
[2021-09-11] MEDS: SODIUM CHLORIDE 0.9% IV 1,000 ML 83 ML IV CONT (02:08)
[2021-09-11 04:12] VITALS: BP 116/51; PULSE 65; RESP 12; TEMP 37; O2SAT 94
[2021-09-11] MEDS: ACETAMINOPHEN 325 MG TABLET 650 MG PO (05:17)
[2021-09-11] MEDS: PIPERACILLIN/TAZOBACTAM SOD 4.5 GM in SODIUM CHLORIDE 0.9% IV 100 ML 200 ML IVPB ×3 (05:19→18:15)
[2021-09-11] MEDS: ONDANSETRON INJ 4 MG/2 ML VIAL IV PUSH (05:22)
[2021-09-11 06:02] LABS: Mean Corpuscular HGB Conc 33.3 g/dl (32-36); Mean Corpuscular Hemoglobin 31.7 pg (26-34); Mean Corpuscular Volume 95.2 fl (80-100); Platelet Count Result 181 k/mm3 (150-375); Red Blood Count 3.78 M/mm3 (4.2-5.4); Red Cell Distribution Width 14.3 % (11.5-14.5); White Blood Count 20.1 K/mm3 (4.5-10.0)
[2021-09-11 06:16] LABS: Alanine Aminotransferase 69 U/L (4-35); Albumin Level 3.4 g/dL (3.5-5.1); Alkaline Phosphatase 328 U/L (38-126); Anion Gap 10 mmol/L (8-16); Aspartate Amino Transferase 42 U/L (14-36); Bilirubin,Total 1.2 mg/dL (0.2-1.3); Blood Urea Nitrogen 25 mg/dL (7-17); Calcium 8.6 mg/dL (8.4-10.2); Carbon Dioxide 21 mmol/L (22-30); Chloride 108 mmol/L (98-107); Estimated CRCL calculation 59 ml/min; Estimated Glomerular Filt Rate > 60; Glucose 129 mg/dL (65-110); Potassium 3.1 mmol/L (3.4-5.0); Sodium 139 mmol/L (137-145)
[2021-09-11 07:39] VITALS: O2SAT 98
[2021-09-11] MEDS: BACLOFEN 10 MG TABLET PO (08:34)
[2021-09-11] MEDS: OMEGA 3 POLYUNSAT FATTY ACIDS 1 GM CAP PO (08:34)
[2021-09-11] MEDS: FLUoxetine HCL 20 MG CAPSULE 40 MG PO (08:34)
[2021-09-11] MEDS: HEPARIN SODIUM 5,000 UNITS/ML VIAL 5000 UNITS SUB-Q ×2 (08:34→21:17)
[2021-09-11] MEDS: MAGNESIUM OXIDE 400 MG TABLET PO (08:34)
[2021-09-11 10:16] LABS: Basophils Absolute Auto 0.1 K/mm3 (0.0-0.1); Basophils Percent Auto 0.3 % (0.2-1.2); Eosinophils Percent Auto 0.2 % (0-4.4); Immature Granulocyte Absolute 0.31 K/mm3 (0.00-0.031); Immature Granulocyte Percent A 1.5 % (0-0.5); Lymphocytes Absolute Auto 0.47 K/mm3 (0.9-3.2); Lymphocytes Percent Auto 2.3 % (18.3-44.2); Monocytes Absolute Auto 0.9 K/mm3 (0.1-0.6); Monocytes Percent Auto 4.5 % (2.6-8.5); Neutrophils Absolute Auto 18.7 K/mm3 (1.3-6.7); Neutrophils Percent Auto 91.2 % (45.5-73.1)
[2021-09-11] MEDS: POTASSIUM CHLORIDE 20 MEQ TABLET 60 MEQ PO (10:31)
[2021-09-11 11:19] LABS: Hepatitis B Surface Antigen Negative (Negative)
[2021-09-11 11:26] LABS: HAV RESULT Negative (Negative); Hepatitis B Core IgM Result Negative (Negative)
[2021-09-11 11:37] LABS: Hepatitis C Virus Antibody Negative (Negative)
--- NOTE | 2021-09-11 12:05 | PM.IMPN ---
Progress Note: A&P Assessment and Plan (1) Sepsis: Qualifiers: Acute renal failure type: unspecified Sepsis acute organ dysfunction status: with acute organ dysfunction Sepsis type: sepsis due to unspecified organism Severe sepsis acute organ dysfunction type: acute renal failure Severe sepsis shock status: without septic shock Qualified Code(s): A41.9 - Sepsis, unspecified organism; R65.20 - Severe sepsis without septic shock; N17.9 - Acute kidney failure, unspecified Code(s): A41.9 - Sepsis, unspecified organism Status: Acute Assessment and Plan: Patient met criteria for sepsis with low blood pressure 90/60, tachycardia at 112, leukocytosis at 20,000, bands cells and elevated lactic acids. Patient started on IV Zosyn #4 for treatment of urinary tract infection and has been tolerating it well other than some diarrhea. Will start a probiotic. Urine culture results showed no growth at this time. Blood cultures negative today. Still monitoring leukocytosis, on arrival was 20,000 and increased to 31,000. Today is back down to 20,000 again. Will recheck CBC with differential tomorrow. Vitals otherwise stable, afebrile, stable blood pressure 116/51, non tachycardic, normal oxygenation on room air. Patient is otherwise feeling better She is otherwise eating and drinking better today will discontinue IV antibiotics. (2) Acute UTI: Code(s): N39.0 - Urinary tract infection, site not specified Status: Acute Assessment and Plan: Continue IV Zosyn at this time. Urine culture and blood cultures are negative. Based on the patient's symptoms and sepsis criteria we are treating a urinary tract infection. (3) Hypokalemia: Code(s): E87.6 - Hypokalemia Status: Acute Assessment and Plan: Hypokalemia at 3.1. Normal magnesium 2.0. Replace and monitor (4) Essential hypertension: Code(s): I10 - Essential (primary) hypertension Status: Acute Assessment and Plan: Stable on current meds. 116/51. Continue monitoring. Time Spent With Patient Time with patient: 25 - 35 minutes Subjective Date/time seen: 09/11/21 12:05 Interval history: Date of service 09/11/2021: Patient reports feeling much better since yesterday afternoon. She is eating a little bit better and feeling better. She has been having diarrhea associated with the IV Zosyn. Denies any fevers, chills, nausea, vomiting, abdominal pain, chest pain, shortness of breath, cough, leg swelling, calf pain, or any other symptoms at this time. Review of Systems Review of Systems: All systems reviewed & are unremarkable except as noted in HPI and below (the history and physical examination.) Exam Narrative: General: 65 year-old woman sitting up in the chair talking on the phone. Appears comfortable. In no acute distress. Skin: No jaundice or cyanosis. Good skin turgor. Neck: Full range of motion. Supple. Respiratory: Lungs are clear to auscultation bilaterally. No bony chest wall tenderness. Cardiovascular: The heart has a regular rate and rhythm without murmur. Lower extremities: No lower extremity edema. Distal pulses are easily palpated. No calf tenderness to palpation. Gastrointestinal: The abdomen is soft, nontender and nondistended with active bowel sounds. Psychiatric: Lucid and oriented. Memory intact. Neurologic: No focal deficits. Speech is clear. No facial drooping. Objective Data Vital Signs Vital Signs: Vital Signs - 24 hr 09/10/21 19:58 09/11/21 04:12 09/11/21 07:39 Temperature 99.1 F 98.6 F Pulse Rate 70 65 Respiratory Rate 14 12 Blood Pressure 130/66 116/51 L Pulse Oximetry 94 94 98 Intake/Output Intake/Output: Intake & Output 09/08/21 09/09/21 09/10/21
[2021-09-11] MEDS: HYDROcodone/acetaminophen (*CRX) 5-325 MG TABLET 1 TAB PO (15:28)
[2021-09-11] MEDS: SACCHAROMYCES BOULARDII 250 MG CAPSULE PO ×2 (15:29→21:16)
[2021-09-11 16:00] VITALS: BP 127/60; PULSE 74; RESP 18; TEMP 36.5; O2SAT 90
[2021-09-11 21:15] VITALS: BP 129/66; PULSE 75; RESP 16; TEMP 37.2; O2SAT 94
[2021-09-11] MEDS: SIMVASTATIN 20 MG TABLET PO (21:16)
[2021-09-11] MEDS: amLODIPine BESYLATE 5 MG TABLET PO (21:16)
[2021-09-11] MEDS: BACLOFEN 10 MG TABLET 20 MG PO (21:17)
[2021-09-12] MEDS: HYDROcodone/acetaminophen (*CRX) 5-325 MG TABLET 1 TAB PO ×2 (00:18→08:55)
[2021-09-12] MEDS: PIPERACILLIN/TAZOBACTAM SOD 4.5 GM in SODIUM CHLORIDE 0.9% IV 100 ML IVPB ×2 (00:20→06:08)
[2021-09-12 05:02] VITALS: BP 141/59; PULSE 81; RESP 18; TEMP 37.4; O2SAT 93
[2021-09-12 06:41] LABS: Basophils Absolute Auto 0.1 K/mm3 (0.0-0.1); Basophils Percent Auto 0.6 % (0.2-1.2); Eosinophils Absolute Auto 0.1 K/mm3 (0-0.3); Eosinophils Percent Auto 0.6 % (0-4.4); Hematocrit 34.6 % (37.0-47.0); Hemoglobin 11.1 g/dL (12.0-15.0); Immature Granulocyte Absolute 0.37 K/mm3 (0.00-0.031); Immature Granulocyte Percent A 2.8 % (0-0.5); Immature Platelet Fraction Pct 7.6 % (0.9-11.2); Lymphocytes Absolute Auto 0.51 K/mm3 (0.9-3.2); Lymphocytes Percent Auto 3.8 % (18.3-44.2); Mean Corpuscular HGB Conc 32.1 g/dl (32-36); Mean Corpuscular Hemoglobin 30.8 pg (26-34); Mean Corpuscular Volume 96.1 fl (80-100); Monocytes Absolute Auto 0.9 K/mm3 (0.1-0.6); Monocytes Percent Auto 6.5 % (2.6-8.5); Neutrophils Absolute Auto 11.4 K/mm3 (1.3-6.7); Neutrophils Percent Auto 85.7 % (45.5-73.1); Platelet Count Result 235 k/mm3 (150-375); Red Cell Distribution Width 14.4 % (11.5-14.5); White Blood Count 13.3 K/mm3 (4.5-10.0)
[2021-09-12 07:00] LABS: Alanine Aminotransferase 55 U/L (4-35); Albumin Level 3.2 g/dL (3.5-5.1); Alkaline Phosphatase 316 U/L (38-126); Anion Gap 7 mmol/L (8-16); Aspartate Amino Transferase 26 U/L (14-36); Blood Urea Nitrogen 19 mg/dL (7-17); CRP 13.5 mg/dL (<1.0); Calcium 8.5 mg/dL (8.4-10.2); Carbon Dioxide 22 mmol/L (22-30); Chloride 109 mmol/L (98-107); Estimated CRCL calculation 59 ml/min; Estimated Glomerular Filt Rate > 60; Glucose 142 mg/dL (65-110); Magnesium 2.2 mg/dL (1.6-2.3); Potassium 3.4 mmol/L (3.4-5.0); Sodium 138 mmol/L (137-145)
[2021-09-12] MEDS: OMEGA 3 POLYUNSAT FATTY ACIDS 1 GM CAP PO (08:55)
[2021-09-12] MEDS: BACLOFEN 10 MG TABLET PO (08:55)
[2021-09-12] MEDS: HEPARIN SODIUM 5,000 UNITS/ML VIAL 5000 UNITS SUB-Q ×2 (08:55→20:30)
[2021-09-12] MEDS: FLUoxetine HCL 20 MG CAPSULE 40 MG PO (08:55)
[2021-09-12] MEDS: SACCHAROMYCES BOULARDII 250 MG CAPSULE PO ×2 (08:55→20:30)
[2021-09-12] MEDS: MAGNESIUM OXIDE 400 MG TABLET PO (08:55)
[2021-09-12] MEDS: POTASSIUM CHLORIDE 20 MEQ TABLET 40 MEQ PO (08:56)
[2021-09-12] MEDS: CYANOCOBALAMIN 1,000 MCG TABLET 1000 MCG PO (09:41)
--- NOTE | 2021-09-12 10:28 | PM.IMPN ---
Progress Note: A&P Assessment and Plan (1) Sepsis: Qualifiers: Acute renal failure type: unspecified Sepsis acute organ dysfunction status: with acute organ dysfunction Sepsis type: sepsis due to unspecified organism Severe sepsis acute organ dysfunction type: acute renal failure Severe sepsis shock status: without septic shock Qualified Code(s): A41.9 - Sepsis, unspecified organism; R65.20 - Severe sepsis without septic shock; N17.9 - Acute kidney failure, unspecified Code(s): A41.9 - Sepsis, unspecified organism Status: Acute Assessment and Plan: Patient met criteria for sepsis with low blood pressure 90/60, tachycardia at 112, leukocytosis at 20,000, bands cells and elevated lactic acids. Patient started on IV Zosyn #5 for treatment of urinary tract infection and has been tolerating it well other than some diarrhea. Continue a probiotic. Urine culture results showed no growth at this time. Blood cultures negative today. Still monitoring leukocytosis, on arrival was 20,000 and increased to 31,000. Today is back down to 13,000, with improvement of neutrophil count to 75% no band cells. Will recheck CBC with differential tomorrow. Vitals otherwise stable, low-grade fever 99.3, stable blood pressure 141/59, non tachycardic, normal oxygenation on room air. Patient is otherwise feeling better * CRP is elevated at 13.5, I will recheck this tomorrow make sure everything is trending down with the IV antibiotics. She is otherwise eating and drinking better today will discontinue IV antibiotics. (2) Acute UTI: Code(s): N39.0 - Urinary tract infection, site not specified Status: Acute Assessment and Plan: Continue IV Zosyn at this time. Urine culture and blood cultures are negative. Based on the patient's symptoms and sepsis criteria we are treating a urinary tract infection. (3) Hypokalemia: Code(s): E87.6 - Hypokalemia Status: Acute Assessment and Plan: Hypokalemia at 3.4. Normal magnesium 2.2. Replace and monitor (4) Essential hypertension: Code(s): I10 - Essential (primary) hypertension Status: Acute Assessment and Plan: Stable on current meds. 141/59. Continue monitoring. Time Spent With Patient Time with patient: 25 - 35 minutes Subjective Date/time seen: 09/12/21 10:28 Interval history: Date of service 09/12/2021: Patient reports feeling 70% better. She still feels slight fevers at times. She is eating better, getting around well but still feels generalized weakness. Reports diarrhea and abdominal cramping has resolved with the probiotic. Denies any nausea, vomiting, abdominal pain, chest pain, shortness of breath, cough, leg swelling, calf pain, or any other symptoms at this time. Review of Systems Review of Systems: All systems reviewed & are unremarkable except as noted in HPI and below (the history and physical examination.) Exam Narrative: General: 65 year-old woman laying on her right side in bed taking a nap. Appears comfortable. In no acute distress. Skin: No jaundice or cyanosis. Good skin turgor. Neck: Full range of motion. Supple. Respiratory: Lungs are clear to auscultation bilaterally. No bony chest wall tenderness. Cardiovascular: The heart has a regular rate and rhythm without murmur. Lower extremities: No lower extremity edema. Distal pulses are easily palpated. No calf tenderness to palpation. Gastrointestinal: The abdomen is soft, nontender and nondistended with active bowel sounds. Psychiatric: Lucid and oriented. Memory intact. Neurologic: No focal deficits. Speech is clear. No facial drooping. Objective Data Vital Signs Vital Signs: Vital Signs - 24 hr 09/11/21 16:00 09/11/21 21:15 09/12/21 05:
[2021-09-12] MEDS: ACETAMINOPHEN 325 MG TABLET 650 MG PO (12:13)
[2021-09-12] MEDS: ONDANSETRON INJ 4 MG/2 ML VIAL IV PUSH (12:13)
[2021-09-12] MEDS: PIPERACILLIN/TAZOBACTAM SOD 4.5 GM in SODIUM CHLORIDE 0.9% IV 100 ML 200 ML IVPB ×3 (12:14→23:37)
[2021-09-12 14:00] VITALS: BP 127/54; PULSE 69; RESP 24; TEMP 36.2; O2SAT 94
[2021-09-12] MEDS: amLODIPine BESYLATE 5 MG TABLET PO (20:30)
[2021-09-12] MEDS: BACLOFEN 10 MG TABLET 20 MG PO (20:30)
[2021-09-12] MEDS: SIMVASTATIN 20 MG TABLET PO (20:30)
[2021-09-12 22:00] VITALS: BP 145/63; PULSE 80; RESP 18; TEMP 36.4; O2SAT 91
[2021-09-13] MEDS: HYDROcodone/acetaminophen (*CRX) 5-325 MG TABLET 1 TAB PO ×3 (02:21→17:50)
[2021-09-13] MEDS: PIPERACILLIN/TAZOBACTAM SOD 4.5 GM in SODIUM CHLORIDE 0.9% IV 100 ML 200 ML IVPB ×3 (05:12→17:51)
[2021-09-13 05:31] VITALS: BP 134/62; PULSE 65; RESP 16; TEMP 36.1; O2SAT 96
[2021-09-13 06:46] LABS: Basophils Absolute Auto 0.1 K/mm3 (0.0-0.1); Basophils Percent Auto 0.6 % (0.2-1.2); Eosinophils Absolute Auto 0.1 K/mm3 (0-0.3); Eosinophils Percent Auto 1.3 % (0-4.4); Hematocrit 32.9 % (37.0-47.0); Hemoglobin 10.8 g/dL (12.0-15.0); Immature Granulocyte Absolute 0.32 K/mm3 (0.00-0.031); Immature Granulocyte Percent A 3.6 % (0-0.5); Lymphocytes Absolute Auto 0.41 K/mm3 (0.9-3.2); Lymphocytes Percent Auto 4.7 % (18.3-44.2); Mean Corpuscular HGB Conc 32.8 g/dl (32-36); Mean Corpuscular Hemoglobin 30.9 pg (26-34); Mean Platelet Volume 10.8 fl (7.4-10.4); Monocytes Absolute Auto 0.6 K/mm3 (0.1-0.6); Monocytes Percent Auto 7.3 % (2.6-8.5); Neutrophils Absolute Auto 7.2 K/mm3 (1.3-6.7); Neutrophils Percent Auto 82.5 % (45.5-73.1); Nucleated Red Blood Cells Perc 0.3 % (0.0-0.2); Platelet Count Result 222 k/mm3 (150-375); Red Cell Distribution Width 14.5 % (11.5-14.5); White Blood Count 8.8 K/mm3 (4.5-10.0)
[2021-09-13 06:58] LABS: Alanine Aminotransferase 50 U/L (4-35); Albumin Level 3.1 g/dL (3.5-5.1); Alkaline Phosphatase 392 U/L (38-126); Anion Gap 6 mmol/L (8-16); Aspartate Amino Transferase 39 U/L (14-36); Bilirubin,Total 1.1 mg/dL (0.2-1.3); Blood Urea Nitrogen 15 mg/dL (7-17); Calcium 8.6 mg/dL (8.4-10.2); Carbon Dioxide 26 mmol/L (22-30); Chloride 107 mmol/L (98-107); Estimated CRCL calculation 59 ml/min; Estimated Glomerular Filt Rate > 60; Glucose 109 mg/dL (65-110); Potassium 3.5 mmol/L (3.4-5.0); Sodium 139 mmol/L (137-145)
[2021-09-13 09:35] VITALS: O2SAT 94
[2021-09-13] MEDS: SACCHAROMYCES BOULARDII 250 MG CAPSULE PO ×2 (09:54→20:48)
[2021-09-13] MEDS: CYANOCOBALAMIN 1,000 MCG TABLET 1000 MCG PO (09:54)
[2021-09-13] MEDS: HEPARIN SODIUM 5,000 UNITS/ML VIAL 5000 UNITS SUB-Q ×2 (09:54→20:49)
[2021-09-13] MEDS: FLUoxetine HCL 20 MG CAPSULE 40 MG PO (09:54)
[2021-09-13] MEDS: MAGNESIUM OXIDE 400 MG TABLET PO (09:54)
[2021-09-13] MEDS: OMEGA 3 POLYUNSAT FATTY ACIDS 1 GM CAP PO (09:54)
[2021-09-13] MEDS: BACLOFEN 10 MG TABLET PO (09:59)
[2021-09-13] MEDS: POTASSIUM CHLORIDE 20 MEQ TABLET 40 MEQ PO (10:00)
--- NOTE | 2021-09-13 10:38 | PM.IMPN ---
Progress Note: A&P Assessment and Plan (1) Acute respiratory failure with hypoxia: Code(s): J96.01 - Acute respiratory failure with hypoxia Status: Acute Assessment and Plan: 09/13/21: Patient was found to be hypoxic at 88% on room air. She was put on 2 L of oxygen. This morning she was able to be weaned down to room air but when the nurse checked her again she was 86%. She was placed on 2.5 L of oxygen and now 94%. Will get chest x-ray-she does have some crackles and leg swelling so could be fluid overload from the IV fluid she had received a few days ago. Will also order IV Lasix 20 mg x1 Will check inflammatory markers She is on subQ heparin for DVT prophylaxis so PE is low at this time unless everything also comes back negative Continue monitoring. Supplemental oxygen as needed. (2) Sepsis: Qualifiers: Acute renal failure type: unspecified Sepsis acute organ dysfunction status: with acute organ dysfunction Sepsis type: sepsis due to unspecified organism Severe sepsis acute organ dysfunction type: acute renal failure Severe sepsis shock status: without septic shock Qualified Code(s): A41.9 - Sepsis, unspecified organism; R65.20 - Severe sepsis without septic shock; N17.9 - Acute kidney failure, unspecified Code(s): A41.9 - Sepsis, unspecified organism Status: Acute Assessment and Plan: Patient met criteria for sepsis with low blood pressure 90/60, tachycardia at 112, leukocytosis at 20,000, bands cells and elevated lactic acids. Patient started on IV Zosyn #5 for treatment of urinary tract infection and has been tolerating it well other than some diarrhea. Continue a probiotic. Urine culture results showed no growth at this time. Blood cultures negative today. Still monitoring leukocytosis, on arrival was 20,000 and increased to 31,000. Today is back down to normal. Will recheck CBC with differential tomorrow. Vitals otherwise stable, afebrile , stable blood pressure 134/62, non tachycardic, patient was found to be hypoxic last night 88% on room air. She was placed on 2 L. Currently she is 94% on 2-1/2 L * CRP is elevated at 13.5, this morning it improved to 7.0. She is otherwise eating and drinking better today will discontinue IV antibiotics. (3) Acute UTI: Code(s): N39.0 - Urinary tract infection, site not specified Status: Acute Assessment and Plan: Continue IV Zosyn at this time. Urine culture and blood cultures are negative. Based on the patient's symptoms and sepsis criteria we are treating a urinary tract infection. (4) Hypokalemia: Code(s): E87.6 - Hypokalemia Status: Acute Assessment and Plan: Hypokalemia at 3.5. Normal magnesium 2.2. Replace and monitor (5) Essential hypertension: Code(s): I10 - Essential (primary) hypertension Status: Acute Assessment and Plan: Stable on current meds. 134/62 Continue monitoring. Additional Plan Time Spent With Patient Time with patient: 25 - 35 minutes Subjective Date/time seen: 09/13/21 10:38 Interval history: Date of service 09/13/2021: Patient reports feeling 60% better, today. She did want to eat much of her breakfast. She still feels slight fevers at times. She is eating better, getting around well but still feels generalized weakness. Reports diarrhea and abdominal cramping has resolved with the probiotic. She also reports swelling to her legs. Denies any nausea, vomiting, abdominal pain, chest pain, shortness of breath, cough, leg swelling, calf pain, or any other symptoms at this time. Review of Systems Review of Systems: All systems reviewed & are unremarkable except as noted in HPI and below (the history
[2021-09-13 11:28] LABS: Lactate Dehydrogenase 508 U/L (313-618)
[2021-09-13] MEDS: FUROSEMIDE INJ 40 MG/4 ML VIAL 20 MG IV PUSH (12:16)
[2021-09-13 13:50] VITALS: BP 142/72; PULSE 77; RESP 18; TEMP 37.3; O2SAT 93
[2021-09-13 20:00] VITALS: PULSE 77; RESP 18; O2SAT 93
[2021-09-13] MEDS: amLODIPine BESYLATE 5 MG TABLET PO (20:48)
[2021-09-13] MEDS: BACLOFEN 10 MG TABLET 20 MG PO (20:48)
[2021-09-13 22:00] VITALS: BP 145/60; PULSE 69; RESP 18; TEMP 36.9; O2SAT 94
[2021-09-14] VITALS (7 sets, daily range): BP systolic 141–149; BP diastolic 60–89; PULSE 69–77; RESP 16–18; TEMP 36.6–36.8; O2SAT 91–95
[2021-09-14] MEDS: HYDROcodone/acetaminophen (*CRX) 5-325 MG TABLET 1 TAB PO ×4 (00:25→22:01)
[2021-09-14] MEDS: PIPERACILLIN/TAZOBACTAM SOD 4.5 GM in SODIUM CHLORIDE 0.9% IV 100 ML 200 ML IVPB ×2 (00:31→05:14)
[2021-09-14 06:01] LABS: Basophils Percent Auto 0.4 % (0.2-1.2); Eosinophils Absolute Auto 0.1 K/mm3 (0-0.3); Eosinophils Percent Auto 0.5 % (0-4.4); Hematocrit 35.8 % (37.0-47.0); Hemoglobin 11.8 g/dL (12.0-15.0); Immature Granulocyte Absolute 0.34 K/mm3 (0.00-0.031); Immature Granulocyte Percent A 3.7 % (0-0.5); Lymphocytes Absolute Auto 0.41 K/mm3 (0.9-3.2); Lymphocytes Percent Auto 4.4 % (18.3-44.2); Mean Corpuscular Hemoglobin 30.7 pg (26-34); Mean Corpuscular Volume 93.2 fl (80-100); Mean Platelet Volume 10.1 fl (7.4-10.4); Monocytes Absolute Auto 0.7 K/mm3 (0.1-0.6); Monocytes Percent Auto 7.8 % (2.6-8.5); Neutrophils Absolute Auto 7.7 K/mm3 (1.3-6.7); Neutrophils Percent Auto 83.2 % (45.5-73.1); Nucleated Red Blood Cells Perc 0.3 % (0.0-0.2); Platelet Count Result 255 k/mm3 (150-375); Red Blood Count 3.84 M/mm3 (4.2-5.4); Red Cell Distribution Width 14.5 % (11.5-14.5); White Blood Count 9.3 K/mm3 (4.5-10.0)
[2021-09-14 06:19] LABS: Alanine Aminotransferase 93 U/L (4-35); Albumin Level 3.4 g/dL (3.5-5.1); Alkaline Phosphatase 509 U/L (38-126); Anion Gap 8 mmol/L (8-16); Aspartate Amino Transferase 86 U/L (14-36); Bilirubin,Total 1.1 mg/dL (0.2-1.3); Blood Urea Nitrogen 10 mg/dL (7-17); Calcium 8.9 mg/dL (8.4-10.2); Carbon Dioxide 35 mmol/L (22-30); Chloride 94 mmol/L (98-107); Estimated CRCL calculation 59 ml/min; Estimated Glomerular Filt Rate > 60; Glucose 111 mg/dL (65-110); Potassium 3.2 mmol/L (3.4-5.0); Sodium 137 mmol/L (137-145)
[2021-09-14] MEDS: OMEGA 3 POLYUNSAT FATTY ACIDS 1 GM CAP PO (07:53)
[2021-09-14] MEDS: MAGNESIUM OXIDE 400 MG TABLET PO (07:53)
[2021-09-14] MEDS: ACETAMINOPHEN 325 MG TABLET 650 MG PO (07:53)
[2021-09-14] MEDS: SACCHAROMYCES BOULARDII 250 MG CAPSULE PO ×2 (07:53→20:14)
[2021-09-14] MEDS: FLUoxetine HCL 20 MG CAPSULE 40 MG PO (07:53)
[2021-09-14] MEDS: CYANOCOBALAMIN 1,000 MCG TABLET 1000 MCG PO (07:53)
[2021-09-14] MEDS: BACLOFEN 10 MG TABLET PO (07:58)
[2021-09-14] MEDS: HEPARIN SODIUM 5,000 UNITS/ML VIAL 5000 UNITS SUB-Q ×2 (07:58→20:14)
[2021-09-14 08:37] LABS: CRP 5.5 mg/dL (<1.0); Magnesium 1.6 mg/dL (1.6-2.3)
[2021-09-14] MEDS: POTASSIUM CHLORIDE 20 MEQ TABLET 60 MEQ PO (09:19)
[2021-09-14 09:29] LABS: Lactate Dehydrogenase 556 U/L (313-618)
--- NOTE | 2021-09-14 09:45 | PM.IMPN ---
Progress Note: A&P Assessment and Plan (1) Acute respiratory failure with hypoxia: Code(s): J96.01 - Acute respiratory failure with hypoxia Status: Acute Assessment and Plan: 09/13/21: Patient was found to be hypoxic at 88% on room air. She was put on 2 L of oxygen. This morning she was able to be weaned down to room air but when the nurse checked her again she was 86%. She was placed on 2.5 L of oxygen and now 94%. Chest x-ray Worsened airspace opacities in the lower lung zones, consistent with atelectasis versus pneumonia. New small left pleural effusion. She was given IV Lasix 20 mg x1 09/13/21 with some improvement to her leg swelling Inflammatory markers showed improving CRP, normal ferritin and LDH. She is on subQ heparin for DVT prophylaxis so PE is low at this time unless everything also comes back negative 09/14/21-patient is a 92% on 1 L via nasal cannula. Will give another dose of IV Lasix 20 mg x 1. I believe the pneumonia found on x-ray could be what we have been treating along versus atelectasis. CRP is improving as well as normalized leukocytosis. I will not make any adjustments to her antibiotics at this time. Ordered incentive spirometer, cornet valve, DuoNeb treatments to help open up her airways from atelectasis. COVID is low on my suspicion lunch she becomes more hypoxic with elevating inflammatory markers. Continue monitoring. Supplemental oxygen as needed. (2) Sepsis: Qualifiers: Acute renal failure type: unspecified Sepsis acute organ dysfunction status: with acute organ dysfunction Sepsis type: sepsis due to unspecified organism Severe sepsis acute organ dysfunction type: acute renal failure Severe sepsis shock status: without septic shock Qualified Code(s): A41.9 - Sepsis, unspecified organism; R65.20 - Severe sepsis without septic shock; N17.9 - Acute kidney failure, unspecified Code(s): A41.9 - Sepsis, unspecified organism Status: Acute Assessment and Plan: Patient met criteria for sepsis with low blood pressure 90/60, tachycardia at 112, leukocytosis at 20,000, bands cells and elevated lactic acids. Patient started on IV Zosyn #6 for treatment of urinary tract infection and has been tolerating it well other than some diarrhea. Continue a probiotic. Urine culture results showed no growth at this time. Blood cultures negative today. Still monitoring leukocytosis, on arrival was 20,000 and increased to 31,000. Today is back down to normal. Will recheck CBC with differential tomorrow. Vitals otherwise stable, afebrile , stable blood pressure 134/62, non tachycardic, patient was found to be hypoxic last night 88% on room air. She was placed on 2 L. Currently she is 92% 1 L * CRP is elevated at 13.5, this morning it improved to 5.5 She is otherwise eating and drinking better today will discontinue IV antibiotics. (3) Acute UTI: Code(s): N39.0 - Urinary tract infection, site not specified Status: Acute Assessment and Plan: Continue IV Zosyn at this time. Urine culture and blood cultures are negative. Based on the patient's symptoms and sepsis criteria we are treating a urinary tract infection. (4) Hypokalemia: Code(s): E87.6 - Hypokalemia Status: Acute Assessment and Plan: Hypokalemia at 3.2. Normal magnesium Replace and monitor (5) Essential hypertension: Code(s): I10 - Essential (primary) hypertension Status: Acute Assessment and Plan: Stable on current meds. Continue monitoring. Additional Plan Time Spent With Patient Time with patient: 25 - 35 minutes Subjective Date/time seen: 09/14/21 09:45 Interval history: Date of service 09/14/2021: Karlee
[2021-09-14 09:50] LABS: NT Pro B Type Natriuretic Pept 2690 pg/mL (5-100)
[2021-09-14] MEDS: FUROSEMIDE INJ 40 MG/4 ML VIAL 20 MG IV PUSH (11:07)
[2021-09-14] MEDS: MAGNESIUM SULFATE 3GM/D5W100ML 3 GM/100 ML BAG IVPB (11:07)
[2021-09-14] MEDS: PIPERACILLIN/TAZOBACTAM SOD 4.5 GM in SODIUM CHLORIDE 0.9% IV 100 ML IVPB ×3 (12:15→23:24)
[2021-09-14] MEDS: IPRATROPIUM BR 0.02% INH SOLN 0.5 MG/2.5 ML VIAL INHALATION ×2 (14:19→21:26)
[2021-09-14] MEDS: ALBUTEROL SULFATE NEB 2.5 MG/0.5 ML INH INHALATION ×2 (14:19→21:26)
[2021-09-14] MEDS: amLODIPine BESYLATE 5 MG TABLET PO (20:14)
[2021-09-14] MEDS: BACLOFEN 10 MG TABLET 20 MG PO (20:14)
[2021-09-15] VITALS (12 sets, daily range): BP systolic 126–149; BP diastolic 61–73; PULSE 66–85; RESP 12–18; TEMP 36.8–37.5; O2SAT 90–95
[2021-09-15] MEDS: IPRATROPIUM BR 0.02% INH SOLN 0.5 MG/2.5 ML VIAL INHALATION ×3 (03:10→22:28)
[2021-09-15] MEDS: ALBUTEROL SULFATE NEB 2.5 MG/0.5 ML INH INHALATION ×3 (03:10→22:27)
[2021-09-15] MEDS: PIPERACILLIN/TAZOBACTAM SOD 4.5 GM in SODIUM CHLORIDE 0.9% IV 100 ML 200 ML IVPB ×3 (05:43→17:23)
[2021-09-15 06:13] LABS: Basophils Absolute Auto 0.1 K/mm3 (0.0-0.1); Basophils Percent Auto 0.6 % (0.2-1.2); Eosinophils Percent Auto 0.1 % (0-4.4); Hematocrit 35.4 % (37.0-47.0); Hemoglobin 11.9 g/dL (12.0-15.0); Immature Granulocyte Absolute 0.26 K/mm3 (0.00-0.031); Lymphocytes Absolute Auto 0.43 K/mm3 (0.9-3.2); Lymphocytes Percent Auto 4.9 % (18.3-44.2); Mean Corpuscular HGB Conc 33.6 g/dl (32-36); Mean Corpuscular Hemoglobin 30.7 pg (26-34); Mean Corpuscular Volume 91.5 fl (80-100); Mean Platelet Volume 9.6 fl (7.4-10.4); Monocytes Absolute Auto 0.6 K/mm3 (0.1-0.6); Monocytes Percent Auto 6.4 % (2.6-8.5); Neutrophils Absolute Auto 7.5 K/mm3 (1.3-6.7); Platelet Count Result 281 k/mm3 (150-375); Red Blood Count 3.87 M/mm3 (4.2-5.4); Red Cell Distribution Width 14.6 % (11.5-14.5); White Blood Count 8.8 K/mm3 (4.5-10.0)
[2021-09-15] MEDS: ACETAMINOPHEN 325 MG TABLET 650 MG PO (06:21)
[2021-09-15 06:33] LABS: Anion Gap 10 mmol/L (8-16); Blood Urea Nitrogen 12 mg/dL (7-17); Calcium 8.7 mg/dL (8.4-10.2); Carbon Dioxide 32 mmol/L (22-30); Chloride 91 mmol/L (98-107); Estimated CRCL calculation 53 ml/min; Estimated Glomerular Filt Rate > 60; Glucose 139 mg/dL (65-110); Potassium 3.4 mmol/L (3.4-5.0); Sodium 133 mmol/L (137-145)
[2021-09-15] MEDS: CYANOCOBALAMIN 1,000 MCG TABLET 1000 MCG PO (08:16)
[2021-09-15] MEDS: OMEGA 3 POLYUNSAT FATTY ACIDS 1 GM CAP PO (08:16)
[2021-09-15] MEDS: MAGNESIUM OXIDE 400 MG TABLET PO (08:16)
[2021-09-15] MEDS: SACCHAROMYCES BOULARDII 250 MG CAPSULE PO ×2 (08:16→22:02)
[2021-09-15] MEDS: FLUoxetine HCL 20 MG CAPSULE 40 MG PO (08:17)
[2021-09-15] MEDS: HEPARIN SODIUM 5,000 UNITS/ML VIAL 5000 UNITS SUB-Q ×2 (08:24→22:02)
--- NOTE | 2021-09-15 11:56 | PCRCNOTE ---
Window of time for administration has passed. See next scheduled administration.
[2021-09-15 13:04] LABS: Magnesium 1.9 mg/dL (1.6-2.3)
[2021-09-15] MEDS: BACLOFEN 10 MG TABLET PO (13:07)
[2021-09-15] MEDS: POTASSIUM CHLORIDE 20 MEQ TABLET 40 MEQ PO (13:24)
[2021-09-15] MEDS: FUROSEMIDE INJ 40 MG/4 ML VIAL 20 MG IV PUSH (13:24)
--- NOTE | 2021-09-15 13:35 | PM.IMPN ---
Progress Note: A&P Assessment and Plan (1) Acute respiratory failure with hypoxia: Code(s): J96.01 - Acute respiratory failure with hypoxia Status: Acute Assessment and Plan: 09/13/21: Patient was found to be hypoxic at 88% on room air. She was put on 2 L of oxygen. This morning she was able to be weaned down to room air but when the nurse checked her again she was 86%. She was placed on 2.5 L of oxygen and now 94%. Chest x-ray Worsened airspace opacities in the lower lung zones, consistent with atelectasis versus pneumonia. New small left pleural effusion. She was given IV Lasix 20 mg x1 09/13/21, 09/14/21 with some improvement to her leg swelling Inflammatory markers showed improving CRP, normal ferritin and LDH. She is on subQ heparin for DVT prophylaxis so PE is low at this time unless everything also comes back negative 09/15/21-patient is a 93% on RA. Will give another dose of IV Lasix 20 mg x 1. I believe the pneumonia found on x-ray could be what we have been treating along versus atelectasis. CRP is improving as well as normalized leukocytosis. I will not make any adjustments to her antibiotics at this time. Ordered incentive spirometer, cornet valve, DuoNeb treatments to help open up her airways from atelectasis. COVID is low on my suspicion unless she becomes more hypoxic with elevating inflammatory markers. Will get a home oxygen evaluation tomorrow Continue monitoring. Supplemental oxygen as needed. (2) Sepsis: Qualifiers: Acute renal failure type: unspecified Sepsis acute organ dysfunction status: with acute organ dysfunction Sepsis type: sepsis due to unspecified organism Severe sepsis acute organ dysfunction type: acute renal failure Severe sepsis shock status: without septic shock Qualified Code(s): A41.9 - Sepsis, unspecified organism; R65.20 - Severe sepsis without septic shock; N17.9 - Acute kidney failure, unspecified Code(s): A41.9 - Sepsis, unspecified organism Status: Acute Assessment and Plan: Patient met criteria for sepsis with low blood pressure 90/60, tachycardia at 112, leukocytosis at 20,000, bands cells and elevated lactic acids. Patient started on IV Zosyn #7 for treatment of urinary tract infection and has been tolerating it well other than some diarrhea. Continue a probiotic. Urine culture results showed no growth at this time. Blood cultures negative today. Still monitoring leukocytosis, on arrival was 20,000 and increased to 31,000. Today he continues to be normal. Will recheck CBC with differential tomorrow. Vitals otherwise stable, afebrile , stable blood pressure 134/62, non tachycardic, patient was found to be hypoxic 09/13/21 88% on room air. She was placed on 2 L. Currently she is 93% on RA * CRP improving She is otherwise eating and drinking better today will discontinue IV antibiotics. (3) Acute UTI: Code(s): N39.0 - Urinary tract infection, site not specified Status: Acute Assessment and Plan: Continue IV Zosyn at this time. Urine culture and blood cultures are negative. Based on the patient's symptoms and sepsis criteria we are treating a urinary tract infection. (4) Hypokalemia: Code(s): E87.6 - Hypokalemia Status: Acute Assessment and Plan: Hypokalemia at 3.4. Normal magnesium Replace and monitor (5) Essential hypertension: Code(s): I10 - Essential (primary) hypertension Status: Acute Assessment and Plan: Stable on current meds. Continue monitoring. (6) Elevated LFTs: Code(s): R79.89 - Other specified abnormal findings of blood chemistry Status: Acute Assessment and Plan: Patient has a history of liver laceration wh
[2021-09-15] MEDS: HYDROcodone/acetaminophen (*CRX) 5-325 MG TABLET 1 TAB PO ×2 (15:30→22:04)
[2021-09-15] MEDS: amLODIPine BESYLATE 5 MG TABLET PO (22:02)
[2021-09-15] MEDS: BACLOFEN 10 MG TABLET 20 MG PO (22:06)
[2021-09-16] VITALS (7 sets, daily range): BP systolic 135–151; BP diastolic 58–61; PULSE 64–103; RESP 16–18; TEMP 36.4–37.9; O2SAT 92–99
[2021-09-16] MEDS: PIPERACILLIN/TAZOBACTAM SOD 4.5 GM in SODIUM CHLORIDE 0.9% IV 100 ML 200 ML IVPB ×4 (00:31→23:21)
[2021-09-16] MEDS: ALBUTEROL SULFATE NEB 2.5 MG/0.5 ML INH INHALATION ×3 (01:58→20:13)
[2021-09-16] MEDS: IPRATROPIUM BR 0.02% INH SOLN 0.5 MG/2.5 ML VIAL INHALATION ×3 (01:59→20:13)
[2021-09-16 05:53] LABS: Basophils Percent Auto 0.2 % (0.2-1.2); Eosinophils Percent Auto 0.1 % (0-4.4); Hemoglobin 12.7 g/dL (12.0-15.0); Immature Granulocyte Absolute 0.13 K/mm3 (0.00-0.031); Immature Granulocyte Percent A 1.4 % (0-0.5); Lymphocytes Absolute Auto 0.42 K/mm3 (0.9-3.2); Lymphocytes Percent Auto 4.6 % (18.3-44.2); Mean Corpuscular HGB Conc 33.4 g/dl (32-36); Mean Corpuscular Hemoglobin 30.9 pg (26-34); Mean Corpuscular Volume 92.5 fl (80-100); Mean Platelet Volume 9.9 fl (7.4-10.4); Monocytes Absolute Auto 0.3 K/mm3 (0.1-0.6); Monocytes Percent Auto 3.7 % (2.6-8.5); Neutrophils Absolute Auto 8.2 K/mm3 (1.3-6.7); Platelet Count Result 318 k/mm3 (150-375); Red Blood Count 4.11 M/mm3 (4.2-5.4); Red Cell Distribution Width 14.9 % (11.5-14.5); White Blood Count 9.1 K/mm3 (4.5-10.0)
[2021-09-16 06:02] LABS: Alanine Aminotransferase 121 U/L (4-35); Albumin Level 3.5 g/dL (3.5-5.1); Alkaline Phosphatase 615 U/L (38-126); Anion Gap 10 mmol/L (8-16); Aspartate Amino Transferase 112 U/L (14-36); Bilirubin,Total 0.7 mg/dL (0.2-1.3); Blood Urea Nitrogen 14 mg/dL (7-17); Calcium 8.7 mg/dL (8.4-10.2); Carbon Dioxide 31 mmol/L (22-30); Chloride 92 mmol/L (98-107); Estimated CRCL calculation 48 ml/min; Estimated Glomerular Filt Rate 55; Glucose 164 mg/dL (65-110); Magnesium 1.9 mg/dL (1.6-2.3); Potassium 2.9 mmol/L (3.4-5.0); Sodium 133 mmol/L (137-145)
[2021-09-16] MEDS: OMEGA 3 POLYUNSAT FATTY ACIDS 1 GM CAP PO (08:22)
[2021-09-16] MEDS: HYDROcodone/acetaminophen (*CRX) 5-325 MG TABLET 1 TAB PO ×3 (08:22→20:16)
[2021-09-16] MEDS: CYANOCOBALAMIN 1,000 MCG TABLET 1000 MCG PO (08:22)
[2021-09-16] MEDS: SACCHAROMYCES BOULARDII 250 MG CAPSULE PO ×2 (08:22→20:16)
[2021-09-16] MEDS: FLUoxetine HCL 20 MG CAPSULE 40 MG PO (08:25)
[2021-09-16] MEDS: MAGNESIUM OXIDE 400 MG TABLET PO (08:25)
[2021-09-16] MEDS: HEPARIN SODIUM 5,000 UNITS/ML VIAL 5000 UNITS SUB-Q ×2 (08:27→20:17)
[2021-09-16] MEDS: BACLOFEN 10 MG TABLET PO (08:27)
[2021-09-16] MEDS: POTASSIUM CHLORIDE 20 MEQ TABLET 60 MEQ PO (12:16)
--- NOTE | 2021-09-16 13:37 | PM.IMPN ---
Progress Note: A&P Assessment and Plan (1) Acute respiratory failure with hypoxia: Code(s): J96.01 - Acute respiratory failure with hypoxia Status: Acute Assessment and Plan: 09/13/21: Patient was found to be hypoxic at 88% on room air. She was put on 2 L of oxygen. This morning she was able to be weaned down to room air but when the nurse checked her again she was 86%. She was placed on 2.5 L of oxygen and now 94%. Chest x-ray Worsened airspace opacities in the lower lung zones, consistent with atelectasis versus pneumonia. New small left pleural effusion. She was given IV Lasix 20 mg x1 09/13/21, 09/14/21, 09/15/21 with improvement to her leg swelling/breathing Inflammatory markers showed improving CRP, normal ferritin and LDH. She is on subQ heparin for DVT prophylaxis so PE is low at this time unless everything also comes back negative 09/16/21-patient is a 92% on RA. Continue incentive spirometer, cornet valve, DuoNeb treatments to help open up her airways from atelectasis. COVID is low on my suspicion unless she becomes more hypoxic with elevating inflammatory markers. Will get a home oxygen evaluation tomorrow Continue monitoring. Supplemental oxygen as needed. (2) Sepsis: Qualifiers: Acute renal failure type: unspecified Sepsis acute organ dysfunction status: with acute organ dysfunction Sepsis type: sepsis due to unspecified organism Severe sepsis acute organ dysfunction type: acute renal failure Severe sepsis shock status: without septic shock Qualified Code(s): A41.9 - Sepsis, unspecified organism; R65.20 - Severe sepsis without septic shock; N17.9 - Acute kidney failure, unspecified Code(s): A41.9 - Sepsis, unspecified organism Status: Acute Assessment and Plan: Patient met criteria for sepsis with low blood pressure 90/60, tachycardia at 112, leukocytosis at 20,000, bands cells and elevated lactic acids. Patient started on IV Zosyn #8 for treatment of urinary tract infection and has been tolerating it well other than some diarrhea. Continue a probiotic. Urine culture results showed no growth at this time. Blood cultures negative today. Still monitoring leukocytosis, on arrival was 20,000 and increased to 31,000. Today he continues to be normal. Will recheck CBC with differential tomorrow. Vitals otherwise stable, afebrile , stable blood pressure, non tachycardic, 92% on room air. She is otherwise eating and drinking better today will discontinue IV antibiotics. (3) Acute UTI: Code(s): N39.0 - Urinary tract infection, site not specified Status: Acute Assessment and Plan: Continue IV Zosyn at this time. Based on the patient's symptoms and sepsis criteria we are treating a urinary tract infection. (4) Hypokalemia: Code(s): E87.6 - Hypokalemia Status: Acute Assessment and Plan: Hypokalemia at 2.9. Normal magnesium Replace and monitor (5) Essential hypertension: Code(s): I10 - Essential (primary) hypertension Status: Acute Assessment and Plan: Stable on current meds. Continue monitoring. (6) Elevated LFTs: Code(s): R79.89 - Other specified abnormal findings of blood chemistry Status: Acute Assessment and Plan: Patient has a history of liver laceration while having a cholecystectomy done years ago. Afterwards she required multiple biliary stents to be placed for 4-5 years until her liver functions normalized. She states her liver functions have been normal until she was informed of the elevation during this hospitalization. She denies any abdominal pain or pain after eating at this time. Hepatitis panel was negative CT abdomen pelvis showed normal appearing
[2021-09-16] MEDS: POTASSIUM CHLORIDE 20 MEQ TABLET 40 MEQ PO (19:46)
[2021-09-16] MEDS: amLODIPine BESYLATE 5 MG TABLET PO (20:16)
[2021-09-16] MEDS: BACLOFEN 10 MG TABLET 20 MG PO (20:16)
[2021-09-16] MEDS: ONDANSETRON INJ 4 MG/2 ML VIAL IV PUSH (20:16)
[2021-09-17] VITALS (11 sets, daily range): BP systolic 121–150; BP diastolic 57–71; PULSE 66–81; RESP 16–18; TEMP 36.4–37.2; O2SAT 90–93
[2021-09-17] MEDS: ALBUTEROL SULFATE NEB 2.5 MG/0.5 ML INH INHALATION ×2 (02:05→08:08)
[2021-09-17] MEDS: IPRATROPIUM BR 0.02% INH SOLN 0.5 MG/2.5 ML VIAL INHALATION ×2 (02:05→08:08)
[2021-09-17] MEDS: PIPERACILLIN/TAZOBACTAM SOD 4.5 GM in SODIUM CHLORIDE 0.9% IV 100 ML 200 ML IVPB ×4 (05:31→23:00)
[2021-09-17 06:37] LABS: Basophils Percent Auto 0.1 % (0.2-1.2); Eosinophils Percent Auto 0.3 % (0-4.4); Hematocrit 37.3 % (37.0-47.0); Hemoglobin 12.3 g/dL (12.0-15.0); Immature Granulocyte Absolute 0.09 K/mm3 (0.00-0.031); Immature Granulocyte Percent A 1.3 % (0-0.5); Lymphocytes Absolute Auto 0.39 K/mm3 (0.9-3.2); Lymphocytes Percent Auto 5.7 % (18.3-44.2); Mean Platelet Volume 9.7 fl (7.4-10.4); Monocytes Absolute Auto 0.2 K/mm3 (0.1-0.6); Monocytes Percent Auto 3.2 % (2.6-8.5); Neutrophils Absolute Auto 6.2 K/mm3 (1.3-6.7); Neutrophils Percent Auto 89.4 % (45.5-73.1); Platelet Count Result 252 k/mm3 (150-375); Red Blood Count 3.97 M/mm3 (4.2-5.4); Red Cell Distribution Width 14.9 % (11.5-14.5); White Blood Count 6.9 K/mm3 (4.5-10.0)
[2021-09-17 06:52] LABS: Alanine Aminotransferase 121 U/L (4-35); Albumin Level 3.5 g/dL (3.5-5.1); Alkaline Phosphatase 623 U/L (38-126); Anion Gap 9 mmol/L (8-16); Aspartate Amino Transferase 110 U/L (14-36); Bilirubin,Total 0.7 mg/dL (0.2-1.3); Blood Urea Nitrogen 16 mg/dL (7-17); Calcium 8.7 mg/dL (8.4-10.2); Carbon Dioxide 32 mmol/L (22-30); Chloride 95 mmol/L (98-107); Estimated CRCL calculation 53 ml/min; Estimated Glomerular Filt Rate > 60; Glucose 118 mg/dL (65-110); Potassium 3.5 mmol/L (3.4-5.0); Sodium 136 mmol/L (137-145)
[2021-09-17 08:09] LABS: Glucose Point of Care 133 mg/dl (65-105)
[2021-09-17] MEDS: HEPARIN SODIUM 5,000 UNITS/ML VIAL 5000 UNITS SUB-Q (10:33)
[2021-09-17] MEDS: SACCHAROMYCES BOULARDII 250 MG CAPSULE PO ×2 (10:34→20:55)
[2021-09-17] MEDS: FLUoxetine HCL 20 MG CAPSULE 40 MG PO (10:34)
[2021-09-17] MEDS: OMEGA 3 POLYUNSAT FATTY ACIDS 1 GM CAP PO (10:34)
[2021-09-17] MEDS: CYANOCOBALAMIN 1,000 MCG TABLET 1000 MCG PO (10:34)
[2021-09-17] MEDS: HYDROcodone/acetaminophen (*CRX) 5-325 MG TABLET 1 TAB PO ×3 (10:36→23:00)
[2021-09-17] MEDS: BACLOFEN 10 MG TABLET PO (10:36)
[2021-09-17] MEDS: MAGNESIUM OXIDE 400 MG TABLET PO (10:36)
--- NOTE | 2021-09-17 10:50 | PCNWS ---
Weekly nutritional screen. Patient is tolerating diet, currently NPO for MRCP today. Oral intake has improved. No weight loss reported. No nutritional needs at this time.
[2021-09-17 13:04] LABS: SARS-CoV-2 RNA PCR Positive
[2021-09-17] MEDS: FUROSEMIDE INJ 40 MG/4 ML VIAL 20 MG IV PUSH (13:26)
--- NOTE | 2021-09-17 13:37 | PM.IMPN ---
Progress Note: A&P Assessment and Plan (1) Acute respiratory failure with hypoxia: Code(s): J96.01 - Acute respiratory failure with hypoxia Status: Acute Assessment and Plan: 09/13/21: Patient was found to be hypoxic at 88% on room air. She was put on 2 L of oxygen. This morning she was able to be weaned down to room air but when the nurse checked her again she was 86%. She was placed on 2.5 L of oxygen and now 94%. Chest x-ray Worsened airspace opacities in the lower lung zones, consistent with atelectasis versus pneumonia. New small left pleural effusion. Found to have bilateral small pleural effusions, R>L. She was given IV Lasix 20 mg x1 09/13/21, 09/14/21, 09/15/21 with improvement to her leg swelling/breathing. Will give another dose today. 09/17/21-patient is a 92% 2L via NC. Given the patient's hypoxia, generalized weakness, LFT elevation a COVID PCR was completed and is positive. The patient will now be placed in COVID isolation, start IV remdesivir and dexamethasone. Continue monitoring respiratory status Continue monitoring. Supplemental oxygen as needed. (2) COVID-19: Code(s): U07.1 - COVID-19 Status: Acute Assessment and Plan: 09/17/2021: Patient became positive for COVID-19. Will be started on IV dexamethasone and remdesivir #1 Pl[address] COVID isolation Continue incentive spirometry Will switch DuoNeb treatments to scheduled albuterol inhaler q.i.d. Continue monitoring. 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 Patient has a history of liver laceration while having a cholecystectomy done years ago. Afterwards she required multiple biliary stents to be placed for 4-5 years until her liver functions normalized. She states her liver functions have been normal until she was informed of the elevation during this hospitalization. She denies any abdominal pain or pain after eating at this time. Hepatitis panel was negative CT abdomen pelvis showed normal appearing liver Right upper quadrant ultrasound was normal I talked to Dr. Bañuelos about the patients history and states MRCP would be the best test for further evalutation. MRCP showed Thrombosis of hepatic arteries in anterior segment right hepatic lobe. Abnormal signal in anterior segment right hepatic lobe, consistent with ischemia/infarct. I talked to the radiologist Dr. Herr who evaluated the patient has abdominal pelvis CT with contrast when she came into the hospital on 09/08/2021 and said that the patient did have the hepatic artery thrombus at that time and currently it is unchanged from when she came into the hospital. He said that the ischemic/infarct area would not have shown up on the CT scan which is why it was not noted initially, but is showing up on the MRI which is not uncommon. I talked to Dr. Hannah captain fire prevention [employer] who recommended starting Eliquis for treatment of her hepatic thrombus. He will follow her up in the office in 1 week and monitor her labs and further workup for a coagulopathy issue. He will also order imaging in a few months to further evaluate her thrombus as an outpatient. Continue monitoring with a CMP in the morning (4) Sepsis: Qualifiers: Acute renal failure type: unspecified Sepsis acute organ dysfunction status: with acute organ dysfunction Sepsis type: sepsis due to unspecified organism Severe sepsis acute organ dysfunction type: acute renal failure Severe sepsis shock status: without septic shock Qualified Code(s): A41.9 - Sepsis, unspecified organism; R65.20 - Severe sepsis without septic shock; N17.9 - Acute kidney failure, unspecified Code(s):
[2021-09-17] MEDS: POTASSIUM CHLORIDE 20 MEQ TABLET 40 MEQ PO (15:03)
[2021-09-17] MEDS: ALBUTEROL SULFATE (*SP) INHALER 2 PUFF INHALATION ×2 (16:35→20:57)
[2021-09-17] MEDS: REMDESIVIR 200 MG/NS 250 ML 200 MG/250 ML BAG 250 MG IVPB (17:28)
[2021-09-17] MEDS: BACLOFEN 10 MG TABLET 20 MG PO (20:55)
[2021-09-17] MEDS: PANTOPRAZOLE SODIUM IV 40 MG VIAL IV PUSH (20:55)
[2021-09-17] MEDS: amLODIPine BESYLATE 5 MG TABLET PO (20:55)
[2021-09-17] MEDS: APIXABAN 5 MG TABLET 10 MG PO (20:55)
[2021-09-18] VITALS (7 sets, daily range): BP systolic 132–146; BP diastolic 57–68; PULSE 65–77; RESP 16–20; TEMP 36.8–37.1; O2SAT 91–93
[2021-09-18] MEDS: MORPHINE SULFATE (*CRX) 2 MG/ML INJ 1 MG IV PUSH (03:09)
[2021-09-18] MEDS: ALPRAZolam (*CRX) 0.5 MG TABLET PO ×2 (03:11→21:24)
[2021-09-18] MEDS: PIPERACILLIN/TAZOBACTAM SOD 4.5 GM in SODIUM CHLORIDE 0.9% IV 100 ML 200 ML IVPB (05:25)
[2021-09-18 05:57] LABS: Hematocrit 37.2 % (37.0-47.0); Hemoglobin 12.4 g/dL (12.0-15.0); Mean Corpuscular HGB Conc 33.3 g/dl (32-36); Mean Corpuscular Hemoglobin 30.5 pg (26-34); Mean Corpuscular Volume 91.6 fl (80-100); Mean Platelet Volume 9.9 fl (7.4-10.4); Platelet Count Result 245 k/mm3 (150-375); Red Blood Count 4.06 M/mm3 (4.2-5.4); Red Cell Distribution Width 14.6 % (11.5-14.5); White Blood Count 5.3 K/mm3 (4.5-10.0)
[2021-09-18 06:05] LABS: INR 1.3; Prothrombin Time 16.4 Seconds (11.1-14.7)
[2021-09-18 06:17] LABS: Alanine Aminotransferase 143 U/L (4-35); Albumin Level 3.5 g/dL (3.5-5.1); Alkaline Phosphatase 748 U/L (38-126); Anion Gap 9 mmol/L (8-16); Aspartate Amino Transferase 135 U/L (14-36); Bilirubin,Total 0.6 mg/dL (0.2-1.3); Blood Urea Nitrogen 21 mg/dL (7-17); CRP 8.3 mg/dL (<1.0); Calcium 8.8 mg/dL (8.4-10.2); Carbon Dioxide 32 mmol/L (22-30); Chloride 93 mmol/L (98-107); Estimated CRCL calculation 44 ml/min; Estimated Glomerular Filt Rate 50; Glucose 202 mg/dL (65-110); Lactate Dehydrogenase 745 U/L (313-618); Potassium 4.1 mmol/L (3.4-5.0); Sodium 134 mmol/L (137-145)
[2021-09-18] MEDS: ALBUTEROL SULFATE (*SP) INHALER 2 PUFF INHALATION ×4 (07:57→20:16)
[2021-09-18] MEDS: OMEGA 3 POLYUNSAT FATTY ACIDS 1 GM CAP PO (08:55)
[2021-09-18] MEDS: MAGNESIUM OXIDE 400 MG TABLET PO (08:56)
[2021-09-18] MEDS: FLUoxetine HCL 20 MG CAPSULE 40 MG PO (08:56)
[2021-09-18] MEDS: PANTOPRAZOLE SODIUM IV 40 MG VIAL IV PUSH ×2 (08:56→21:18)
[2021-09-18] MEDS: CYANOCOBALAMIN 1,000 MCG TABLET 1000 MCG PO (08:56)
[2021-09-18] MEDS: SACCHAROMYCES BOULARDII 250 MG CAPSULE PO ×2 (08:56→21:19)
[2021-09-18] MEDS: APIXABAN 5 MG TABLET 10 MG PO ×2 (08:56→21:18)
[2021-09-18] MEDS: BACLOFEN 10 MG TABLET PO (09:01)
--- NOTE | 2021-09-18 12:37 | PM.IMPN ---
Progress Note: A&P Assessment and Plan (1) Acute respiratory failure with hypoxia: Code(s): J96.01 - Acute respiratory failure with hypoxia Status: Acute Assessment and Plan: 09/13/21: Patient was found to be hypoxic at 88% on room air. She was put on 2 L of oxygen. Chest x-ray today showing moderate amount of ill defined airspace disease Found to have bilateral small pleural effusions, R>L. She was given IV Lasix 20 mg daily (09/13-09/16) with improvement to her leg swelling/breathing 09/17/21-patient is a 92% 2L via NC and COVID PCR was positive. The patient was placed in COVID isolation and started IV remdesivir and dexamethasone. Continue monitoring respiratory status (2) Pneumonia due to COVID-19 virus: Code(s): U07.1 - COVID-19; J12.82 - Pneumonia due to coronavirus disease 2019 Status: Acute Assessment and Plan: Patient tested positive for COVID-19 09/17/21: Anti-inflammatory markers noted Continue IV dexamethasone and remdesivir #2 Continue COVID isolation Continue incentive spirometry Continue albuterol inhaler q.i.d. Wean O2 as tolerated. Continue monitoring. 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 Patient has a history of liver laceration while having a cholecystectomy done years ago. Afterwards she required multiple biliary stents to be placed for 4-5 years until her liver functions normalized. She states her liver functions have been normal until she was informed of the elevation during this hospitalization. She denies any abdominal pain or pain after eating at this time. Hepatitis panel was negative CT abdomen pelvis showed normal appearing liver Right upper quadrant ultrasound was normal MRCP showed Thrombosis of hepatic arteries in anterior segment right hepatic lobe. Abnormal signal in anterior segment right hepatic lobe, consistent with ischemia/infarct. I talked to the radiologist Dr. Herr who evaluated the patient has abdominal pelvis CT with contrast when she came into the hospital on 09/08/2021 and said that the patient did have the hepatic artery thrombus at that time and currently it is unchanged from when she came into the hospital. He said that the ischemic/infarct area would not have shown up on the CT scan which is why it was not noted initially, but is showing up on the MRI which is not uncommon. I talked to Dr. Hannah astronomy instructor who recommended starting Eliquis for treatment of her hepatic thrombus. He will follow her up in the office in 1 week and monitor her labs and further workup for a coagulopathy issue. He will also order imaging in a few months to further evaluate her thrombus as an outpatient. LFT elevation could also be related (at least in part) to the COVID infection. Continue monitoring (4) Sepsis: Qualifiers: Acute renal failure type: unspecified Sepsis acute organ dysfunction status: with acute organ dysfunction Sepsis type: sepsis due to unspecified organism Severe sepsis acute organ dysfunction type: acute renal failure Severe sepsis shock status: without septic shock Qualified Code(s): A41.9 - Sepsis, unspecified organism; R65.20 - Severe sepsis without septic shock; N17.9 - Acute kidney failure, unspecified Code(s): A41.9 - Sepsis, unspecified organism Status: Acute Assessment and Plan: Patient met criteria for sepsis with low blood pressure 90/60, tachycardia at 112, leukocytosis at 20,000, bands cells and elevated lactic acids. Patient completed a course of IV Zosyn; she tolerated it well other than some diarrhea. Continue a probiotic. Urine cult
[2021-09-18 16:30] LABS: Glucose Point of Care 250 mg/dl (65-105)
[2021-09-18] MEDS: INSULIN ASPART (*BKC) 100 UNITS/ML SUB-Q (16:34)
[2021-09-18] MEDS: ACETAMINOPHEN 325 MG TABLET 650 MG PO (18:07)
[2021-09-18 20:47] LABS: Glucose Point of Care 382 mg/dl (65-105)
[2021-09-18] MEDS: BACLOFEN 10 MG TABLET 20 MG PO (21:17)
[2021-09-18] MEDS: REMDESIVIR 100 MG/NS 250 ML 100 MG/250 ML BAG 250 MG IVPB (21:17)
[2021-09-18] MEDS: amLODIPine BESYLATE 5 MG TABLET PO (21:19)
[2021-09-18] MEDS: HYDROcodone/acetaminophen (*CRX) 5-325 MG TABLET 1 TAB PO (21:24)
[2021-09-19] VITALS (7 sets, daily range): BP systolic 118–123; BP diastolic 57–67; PULSE 58–67; RESP 18–20; TEMP 36.3–36.6; O2SAT 93–94
[2021-09-19 07:40] LABS: Hematocrit 36.5 % (37.0-47.0); Hemoglobin 11.9 g/dL (12.0-15.0); Mean Corpuscular HGB Conc 32.6 g/dl (32-36); Mean Corpuscular Hemoglobin 29.8 pg (26-34); Mean Corpuscular Volume 91.5 fl (80-100); Mean Platelet Volume 10.5 fl (7.4-10.4); Platelet Count Result 273 k/mm3 (150-375); Red Blood Count 3.99 M/mm3 (4.2-5.4); Red Cell Distribution Width 14.6 % (11.5-14.5); White Blood Count 5.7 K/mm3 (4.5-10.0)
[2021-09-19] MEDS: ALBUTEROL SULFATE (*SP) INHALER 2 PUFF INHALATION ×4 (08:01→19:48)
[2021-09-19 08:08] LABS: INR 1.9
[2021-09-19 08:17] LABS: Alanine Aminotransferase 112 U/L (4-35); Albumin Level 3.4 g/dL (3.5-5.1); Alkaline Phosphatase 614 U/L (38-126); Anion Gap 8 mmol/L (8-16); Aspartate Amino Transferase 78 U/L (14-36); Bilirubin,Total 0.4 mg/dL (0.2-1.3); Blood Urea Nitrogen 31 mg/dL (7-17); CRP 4.5 mg/dL (<1.0); Calcium 8.9 mg/dL (8.4-10.2); Carbon Dioxide 30 mmol/L (22-30); Chloride 98 mmol/L (98-107); Estimated CRCL calculation 59 ml/min; Estimated Glomerular Filt Rate > 60; Glucose 250 mg/dL (65-110); Lactate Dehydrogenase 755 U/L (313-618); Magnesium 2.2 mg/dL (1.6-2.3); Potassium 4.1 mmol/L (3.4-5.0); Sodium 136 mmol/L (137-145)
[2021-09-19] MEDS: OMEGA 3 POLYUNSAT FATTY ACIDS 1 GM CAP PO (09:56)
[2021-09-19] MEDS: SACCHAROMYCES BOULARDII 250 MG CAPSULE PO ×2 (09:56→20:19)
[2021-09-19] MEDS: CYANOCOBALAMIN 1,000 MCG TABLET 1000 MCG PO (09:56)
[2021-09-19] MEDS: APIXABAN 5 MG TABLET 10 MG PO ×2 (09:56→20:19)
[2021-09-19] MEDS: MAGNESIUM OXIDE 400 MG TABLET PO (09:56)
[2021-09-19] MEDS: FLUoxetine HCL 20 MG CAPSULE 40 MG PO (09:56)
[2021-09-19] MEDS: PANTOPRAZOLE SODIUM IV 40 MG VIAL IV PUSH ×2 (09:57→20:18)
[2021-09-19] MEDS: INSULIN ASPART (*BKC) 100 UNITS/ML SUB-Q ×3 (09:57→18:15)
[2021-09-19] MEDS: BACLOFEN 10 MG TABLET PO (09:58)
[2021-09-19 10:28] LABS: Hemoglobin A1C 6.3 % (<5.7)
--- NOTE | 2021-09-19 11:56 | PM.IMPN ---
Progress Note: A&P Assessment and Plan (1) Acute respiratory failure with hypoxia: Code(s): J96.01 - Acute respiratory failure with hypoxia Status: Acute Assessment and Plan: 09/13/21: Patient was found to be hypoxic at 88% on room air. She was put on 2 L of oxygen. Found to have bilateral small pleural effusions, R>L. She was given IV Lasix 20 mg daily (09/13-09/16) with improvement to her leg swelling/breathing 09/17/21-patient is a 92% 2L via NC and COVID PCR was positive. The patient was placed in COVID isolation and started IV remdesivir and dexamethasone. Chest x-ray 09/18 showing moderate amount of ill defined airspace disease. Overnight requiring more O2. Consider Baricitinib but CRP trending down. Atelectasis? Increase actvity as she tolerates. Continue monitoring respiratory status (2) Pneumonia due to COVID-19 virus: Code(s): U07.1 - COVID-19; J12.82 - Pneumonia due to coronavirus disease 2018 Status: Acute Assessment and Plan: Patient tested positive for COVID-19 09/17/21: Anti-inflammatory markers noted with CRP better at 4.5 Continue IV dexamethasone and remdesivir #3 Continue COVID isolation Continue incentive spirometry Continue albuterol inhaler q.i.d. Wean O2 as tolerated. Continue monitoring. 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 Patient has a history of liver laceration while having a cholecystectomy done years ago. Afterwards she required multiple biliary stents to be placed for 4-5 years until her liver functions normalized. She states her liver functions have been normal until she was informed of the elevation during this hospitalization. Hepatitis panel was negative CT abdomen pelvis 09/08 showed normal appearing liver Right upper quadrant ultrasound was normal MRCP 09/17 showing thrombosis of hepatic arteries in anterior segment right hepatic lobe. Abnormal signal in anterior segment right hepatic lobe, consistent with ischemia/infarct. Radiologist said that the patient did have the hepatic artery thrombus on admission by CT scan and MRCP currently showing that it is unchanged. He said that the ischemic/infarct area would not have shown up on the CT scan which is why it was not noted initially, but is showing up on the MRI which is not uncommon. Police Stenographer was called who recommended starting Eliquis for treatment of her hepatic thrombus. He will follow her up in the office in 1 week and monitor her labs and further workup for a coagulopathy issue. He will also order imaging in a few months to further evaluate her thrombus as an outpatient. LFT elevation could also be related (at least in part) to the COVID infection. Continue monitoring. Continue Eliquis (4) Sepsis: Qualifiers: Acute renal failure type: unspecified Sepsis acute organ dysfunction status: with acute organ dysfunction Sepsis type: sepsis due to unspecified organism Severe sepsis acute organ dysfunction type: acute renal failure Severe sepsis shock status: without septic shock Qualified Code(s): A41.9 - Sepsis, unspecified organism; R65.20 - Severe sepsis without septic shock; N17.9 - Acute kidney failure, unspecified Code(s): A41.9 - Sepsis, unspecified organism Status: Acute Assessment and Plan: Patient met criteria for sepsis with low blood pressure 90/60, tachycardia at 112, leukocytosis at 20,000, bands cells and elevated lactic acids. Patient completed a course of IV Zosyn; she tolerated it well other than some diarrhea. Continue a probiotic. Urine culture results showed no growth at this time. Blood cultu
[2021-09-19 12:00] LABS: Glucose Point of Care > 500 mg/dl (65-105)
[2021-09-19 12:00] LABS: Glucose Point of Care 379 mg/dl (65-105)
[2021-09-19] MEDS: ACETAMINOPHEN 325 MG TABLET 650 MG PO (14:23)
[2021-09-19] MEDS: ALPRAZolam (*CRX) 0.5 MG TABLET PO (15:34)
[2021-09-19 16:45] LABS: Glucose Point of Care 334 mg/dl (65-105)
[2021-09-19 19:50] LABS: Glucose Point of Care 278 mg/dl (65-105)
[2021-09-19] MEDS: amLODIPine BESYLATE 5 MG TABLET PO (20:19)
[2021-09-19] MEDS: BACLOFEN 10 MG TABLET 20 MG PO (20:19)
[2021-09-19] MEDS: REMDESIVIR 100 MG/NS 250 ML 100 MG/250 ML BAG 250 MG IVPB (20:20)
[2021-09-19] MEDS: INSULIN GLARGINE (*BKC) 100 UNITS/ML 11 UNITS SUB-Q (20:28)
[2021-09-20] VITALS (9 sets, daily range): BP systolic 130–143; BP diastolic 55–89; PULSE 70–93; RESP 18–21; TEMP 36–36.8; O2SAT 89–93; BMI 10.0
[2021-09-20 06:46] LABS: Alanine Aminotransferase 104 U/L (4-35); Albumin Level 3.5 g/dL (3.5-5.1); Alkaline Phosphatase 628 U/L (38-126); Anion Gap 10 mmol/L (8-16); Aspartate Amino Transferase 81 U/L (14-36); Bilirubin,Total 0.5 mg/dL (0.2-1.3); Blood Urea Nitrogen 29 mg/dL (7-17); CRP 2.3 mg/dL (<1.0); Calcium 9.1 mg/dL (8.4-10.2); Carbon Dioxide 31 mmol/L (22-30); Chloride 96 mmol/L (98-107); Estimated CRCL calculation 53 ml/min; Estimated Glomerular Filt Rate > 60; Glucose 187 mg/dL (65-110); Potassium 4.2 mmol/L (3.4-5.0); Sodium 137 mmol/L (137-145)
[2021-09-20 06:51] LABS: INR 1.5; Prothrombin Time 18.1 Seconds (11.1-14.7)
[2021-09-20 07:49] LABS: Glucose Point of Care 177 mg/dl (65-105)
[2021-09-20] MEDS: ALBUTEROL SULFATE (*SP) INHALER 2 PUFF INHALATION ×3 (08:00→16:00)
[2021-09-20] MEDS: SACCHAROMYCES BOULARDII 250 MG CAPSULE PO ×2 (08:09→21:31)
[2021-09-20] MEDS: PANTOPRAZOLE SODIUM IV 40 MG VIAL IV PUSH ×2 (08:10→21:31)
[2021-09-20] MEDS: FLUoxetine HCL 20 MG CAPSULE 40 MG PO (08:10)
[2021-09-20] MEDS: MAGNESIUM OXIDE 400 MG TABLET PO (08:10)
[2021-09-20] MEDS: CYANOCOBALAMIN 1,000 MCG TABLET 1000 MCG PO (08:10)
[2021-09-20] MEDS: OMEGA 3 POLYUNSAT FATTY ACIDS 1 GM CAP PO (08:10)
[2021-09-20] MEDS: APIXABAN 5 MG TABLET 10 MG PO ×2 (08:10→21:31)
[2021-09-20] MEDS: BACLOFEN 10 MG TABLET PO (08:36)
[2021-09-20 12:01] LABS: Glucose Point of Care 307 mg/dl (65-105)
[2021-09-20] MEDS: INSULIN ASPART (*BKC) 100 UNITS/ML SUB-Q ×2 (12:26→18:04)
[2021-09-20] MEDS: ALPRAZolam (*CRX) 0.5 MG TABLET PO (13:02)
[2021-09-20] MEDS: ACETAMINOPHEN 325 MG TABLET 650 MG PO (13:02)
--- NOTE | 2021-09-20 13:46 | PM.IMPN ---
Progress Note: A&P Assessment and Plan (1) Acute respiratory failure with hypoxia: Code(s): J96.01 - Acute respiratory failure with hypoxia Status: Acute Assessment and Plan: 09/13/21: Patient was found to be hypoxic at 88% on room air. She was put on 2 L of oxygen. CXR with worsened airspace opacities in the lower lung zones, consistent with atelectasis versus pneumonia. She was given IV Lasix 20 mg daily (09/13-09/16) with improvement to her leg swelling/breathing. 09/17/21-patient is a 92% 2L via NC and COVID PCR was positive. The patient was placed in COVID isolation and started IV remdesivir and dexamethasone. Chest x-ray 09/18 showing moderate amount of ill defined airspace disease (no change on CXR today). Stable on 5L O2. Consider Baricitinib but CRP trending down. Continue monitoring respiratory status. Wean O2 as toelrated (2) Pneumonia due to COVID-19 virus: Code(s): U07.1 - COVID-19; J12.82 - Pneumonia due to coronavirus disease 2019 Status: Acute Assessment and Plan: Patient presented with weakness and diarrhea on 09/08/21. CXR clear on 09/08 but showing worsening bibasilar airspace opacities by CXR on 09/13/21. Low grade fever on 09/16/21. She tested positive for COVID-19 09/17/21. Unclear if this was present on admission. Anti-inflammatory markers noted with CRP better at 2.3 Continue IV dexamethasone and remdesivir #4 Continue COVID isolation Continue incentive spirometry Continue albuterol inhaler q.i.d. Wean O2 as tolerated. Continue monitoring. 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 Patient has a history of liver laceration while having a cholecystectomy done years ago. Afterwards she required multiple biliary stents to be placed for 4-5 years until her liver functions normalized. She states her liver functions have been normal until she was informed of the elevation during this hospitalization. Hepatitis panel was negative CT abdomen pelvis 09/08 showed normal appearing liver Right upper quadrant ultrasound was normal MRCP 09/17 showing thrombosis of hepatic arteries in anterior segment right hepatic lobe. Abnormal signal in anterior segment right hepatic lobe, consistent with ischemia/infarct. Radiologist said that the patient did have the hepatic artery thrombus on admission by CT scan and MRCP currently showing that it is unchanged. He said that the ischemic/infarct area would not have shown up on the CT scan which is why it was not noted initially, but is showing up on the MRI which is not uncommon. Senior Sales Associate was called who recommended starting Eliquis for treatment of her hepatic thrombus. He will follow her up in the office in 1 week and monitor her labs and further workup for a coagulopathy issue. He will also order imaging in a few months to further evaluate her thrombus as an outpatient. LFT elevation could also be related (at least in part) to the COVID infection. Continue monitoring. Continue Eliquis (4) Sepsis: Qualifiers: Acute renal failure type: unspecified Sepsis acute organ dysfunction status: with acute organ dysfunction Sepsis type: sepsis due to unspecified organism Severe sepsis acute organ dysfunction type: acute renal failure Severe sepsis shock status: without septic shock Qualified Code(s): A41.9 - Sepsis, unspecified organism; R65.20 - Severe sepsis without septic shock; N17.9 - Acute kidney failure, unspecified Code(s): A41.9 - Sepsis, unspecified organism Status: Acute Assessment and Plan: Patient met criteria for sepsis with low blood pressure 90/60, tachycardia
[2021-09-20 16:52] LABS: Glucose Point of Care 251 mg/dl (65-105)
[2021-09-20] MEDS: BACLOFEN 10 MG TABLET 20 MG PO (21:31)
[2021-09-20] MEDS: REMDESIVIR 100 MG/NS 250 ML 100 MG/250 ML BAG 200 MG IVPB (21:34)
[2021-09-20] MEDS: INSULIN GLARGINE (*BKC) 100 UNITS/ML 11 UNITS SUB-Q (21:34)
[2021-09-20] MEDS: amLODIPine BESYLATE 5 MG TABLET PO (21:34)
[2021-09-20 21:48] LABS: Glucose Point of Care 300 mg/dl (65-105)
[2021-09-21] VITALS (11 sets, daily range): BP systolic 128–138; BP diastolic 64–68; PULSE 69–83; RESP 18–22; TEMP 36.1–38; O2SAT 89–94
--- NOTE | 2021-09-21 | ECHO_ITS ---
Patient Info Name: Kristy Aamya Age: 65 years : 1955 Gender: Female Ht: 64 in Wt: 168 lbs BSA: 1.88 m2 HR: 87 bpm BP: 138 / 65 mmHg Technical Quality: Good Exam Date: 09/21/2021 1:43 PM Exam Location: [facility] Pulmonary Exam Room: 340 Patient Status: Inpatient Admit Date: 09/09/2021 Staff Ordering Physician: Alfred Harp MD Microfilm Camera Operator: Bibi Segura RCS Attending Provider: Marilin Busch-Ezequiel Exam Type: CA echo doppler color flow Study Info Indications - covid hypoxia Complete two-dimensional, color flow and Doppler transthoracic echocardiogram is performed. Summary 1. Complete two-dimensional, color flow and Doppler transthoracic echocardiogram is performed. 2. Left ventricular chamber dimension is normal. 3. Left ventricular systolic function is normal, estimated at 60-65%. 4. The left ventricular diastolic function is grade I diastolic dysfunction. 5. E/e' 14 is mildly elevated. 6. No pulmonary hypertension, estimated pulmonary arterial systolic pressure is 30 mmHg. 7. There is trace pulmonic regurgitation. 8. There is trivial pericardial effusion. Left Ventricle E/e' 14 is mildly elevated. Left ventricular chamber dimension is normal. Left ventricular systolic function is normal, estimated at 60-65%. The left ventricular diastolic function is grade I diastolic dysfunction. Right Ventricle Right ventricular chamber dimension is normal. Right ventricular systolic function is normal. Left Atria Left atrial chamber dimension is normal. Right Atria Right atrial chamber dimension is normal. Aortic Valve The aortic valve is trileaflet. There is no aortic valve stenosis. There is no aortic valve regurgitation. Pulmonic Valve There is trace pulmonic regurgitation. Mitral Valve There is no mitral valve stenosis. There is no mitral valve regurgitation. Tricuspid Valve There is no tricuspid valve regurgitation. No pulmonary hypertension, estimated pulmonary arterial systolic pressure is 30 mmHg. Pericardium/Pleural There is trivial pericardial effusion. Inferior Vena Cava Normal inferior vena cava with >50% collapse upon inspiration consistent with normal right atrial pressure, 5 mmHg. Aorta The aortic root size at the sinus of Valsalva is normal. Left Ventricular Outflow Tract Name Value Normal LVOT 2D LVOT Diameter 2.0 cm LVOT Doppler LVOT Peak Gradient 5 mmHg LVOT Mean Gradient 3 mmHg LVOT VTI 21 cm LVOT VTI/AV VTI Ratio 0.9 LVOT Stroke Volume 71 ml LVOT CO 15.9 l/min LVOT CI 8.5 l/min/m2 Pulmonic Valve Name Value Normal PV Doppler PV Peak Gradient 5 mmHg
[2021-09-21 06:21] LABS: Hematocrit 38.3 % (37.0-47.0); Hemoglobin 12.6 g/dL (12.0-15.0); Mean Corpuscular HGB Conc 32.9 g/dl (32-36); Mean Corpuscular Hemoglobin 30.3 pg (26-34); Mean Corpuscular Volume 92.1 fl (80-100); Platelet Count Result 345 k/mm3 (150-375); Red Blood Count 4.16 M/mm3 (4.2-5.4); Red Cell Distribution Width 14.8 % (11.5-14.5); White Blood Count 11.7 K/mm3 (4.5-10.0)
[2021-09-21] MEDS: ACETAMINOPHEN 325 MG TABLET 650 MG PO ×2 (06:24→14:23)
[2021-09-21 06:36] LABS: Alanine Aminotransferase 82 U/L (4-35); Albumin Level 3.3 g/dL (3.5-5.1); Alkaline Phosphatase 585 U/L (38-126); Anion Gap 7 mmol/L (8-16); Aspartate Amino Transferase 50 U/L (14-36); Bilirubin,Total 0.6 mg/dL (0.2-1.3); Blood Urea Nitrogen 28 mg/dL (7-17); Calcium 9.3 mg/dL (8.4-10.2); Carbon Dioxide 29 mmol/L (22-30); Chloride 99 mmol/L (98-107); Estimated CRCL calculation 53 ml/min; Estimated Glomerular Filt Rate > 60; Glucose 147 mg/dL (65-110); Phosphorus 2.9 mg/dL (2.5-4.5); Sodium 135 mmol/L (137-145)
[2021-09-21 06:48] LABS: INR 2.1; Prothrombin Time 23.2 Seconds (11.1-14.7)
[2021-09-21 07:42] LABS: Glucose Point of Care 113 mg/dl (65-105)
[2021-09-21] MEDS: ALBUTEROL SULFATE (*SP) INHALER 2 PUFF INHALATION ×4 (07:45→22:11)
[2021-09-21] MEDS: OMEGA 3 POLYUNSAT FATTY ACIDS 1 GM CAP PO (08:16)
[2021-09-21] MEDS: PANTOPRAZOLE SODIUM IV 40 MG VIAL IV PUSH ×2 (08:16→21:00)
[2021-09-21] MEDS: BACLOFEN 10 MG TABLET PO (08:16)
[2021-09-21] MEDS: APIXABAN 5 MG TABLET 10 MG PO ×2 (08:16→21:00)
[2021-09-21] MEDS: SACCHAROMYCES BOULARDII 250 MG CAPSULE PO ×2 (08:16→20:59)
[2021-09-21] MEDS: MAGNESIUM OXIDE 400 MG TABLET PO (08:16)
[2021-09-21] MEDS: CYANOCOBALAMIN 1,000 MCG TABLET 1000 MCG PO (08:17)
[2021-09-21] MEDS: FLUoxetine HCL 20 MG CAPSULE 40 MG PO (08:17)
--- NOTE | 2021-09-21 11:39 | PCRCNOTE ---
PT GOING TO SNF, NO HOME O2 EVAL NEEDED.UNABLE TO STOP/COMPLETE ORDER. DISCUSSED WITH RN
[2021-09-21 11:51] LABS: Glucose Point of Care 273 mg/dl (65-105)
[2021-09-21] MEDS: INSULIN ASPART (*BKC) 100 UNITS/ML SUB-Q ×3 (12:06→16:55)
--- NOTE | 2021-09-21 12:49 | PM.IMPN ---
Progress Note: A&P Assessment and Plan (1) Acute respiratory failure with hypoxia: Code(s): J96.01 - Acute respiratory failure with hypoxia Status: Acute Assessment and Plan: 09/13/21: Patient was found to be hypoxic at 88% on room air. She was put on 2 L of oxygen. CXR with worsened airspace opacities in the lower lung zones, consistent with atelectasis versus pneumonia. BNP 2700. She was given IV Lasix 20 mg daily (09/13-09/16) with improvement to her leg swelling/breathing. 09/17/21-patient at 92% 2L via NC and COVID PCR was positive. The patient was placed in COVID isolation and started IV remdesivir and dexamethasone. Chest x-ray 09/20 showing diffuse bilateral lung disease. Stable on 5L O2. Consider Baricitinib but CRP trending down and O2 requirement not worsening. Continue monitoring respiratory status. Wean O2 as tolerated. Lasix x1. Check Echo. (2) Pneumonia due to COVID-19 virus: Code(s): U07.1 - COVID-19; J12.82 - Pneumonia due to coronavirus disease 2018 Status: Acute Assessment and Plan: Patient presented with weakness and diarrhea on 09/08/21. CXR clear on 09/08 but showing worsening bibasilar airspace opacities on 09/13 CXR. Low grade fever on 09/16/21. She tested positive for COVID-19 09/17/21. Unclear if this was present on admission. Anti-inflammatory markers noted with CRP better at 2.3 Continue IV dexamethasone and remdesivir #5 Continue COVID isolation Continue incentive spirometry Continue albuterol inhaler q.i.d. Wean O2 as tolerated. Continue monitoring. 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 Patient has a history of liver laceration while having a cholecystectomy done years ago. Afterwards she required multiple biliary stents to be placed for 4-5 years until her liver functions normalized. She states her liver functions have been normal until she was informed of the elevation during this hospitalization. Hepatitis panel was negative CT abdomen pelvis 09/08 showed normal appearing liver Right upper quadrant ultrasound was normal MRCP 09/17 showing thrombosis of hepatic arteries in anterior segment right hepatic lobe. Abnormal signal in anterior segment right hepatic lobe, consistent with ischemia/infarct. Radiologist said that the patient did have the hepatic artery thrombus on admission by CT scan and MRCP currently showing that it is unchanged. He said that the ischemic/infarct area would not have shown up on the CT scan which is why it was not noted initially, but is showing up on the MRI which is not uncommon. Bakery Helper was called who recommended starting Eliquis for treatment of her hepatic thrombus. He will follow her up in the office in 1 week and monitor her labs and further workup for a coagulopathy issue. He will also order imaging in a few months to further evaluate her thrombus as an outpatient. LFT elevation could also be related (at least in part) to the COVID infection. Continue monitoring. Continue Eliquis (4) Sepsis: Qualifiers: Acute renal failure type: unspecified Sepsis acute organ dysfunction status: with acute organ dysfunction Sepsis type: sepsis due to unspecified organism Severe sepsis acute organ dysfunction type: acute renal failure Severe sepsis shock status: without septic shock Qualified Code(s): A41.9 - Sepsis, unspecified organism; R65.20 - Severe sepsis without septic shock; N17.9 - Acute kidney failure, unspecified Code(s): A41.9 - Sepsis, unspecified organism Status: Acute Assessment and Plan: Patient met criteria for sepsis with low blood pressure 90/6
[2021-09-21] MEDS: FUROSEMIDE INJ 40 MG/4 ML VIAL 20 MG IV PUSH (15:45)
[2021-09-21 16:51] LABS: Glucose Point of Care 359 mg/dl (65-105)
[2021-09-21] MEDS: INSULIN GLARGINE (*BKC) 100 UNITS/ML 9 UNITS SUB-Q (20:53)
[2021-09-21] MEDS: BACLOFEN 10 MG TABLET 20 MG PO (20:58)
[2021-09-21] MEDS: ALPRAZolam (*CRX) 0.5 MG TABLET PO (21:00)
[2021-09-21] MEDS: SIMVASTATIN 20 MG TABLET PO (21:00)
[2021-09-21] MEDS: REMDESIVIR 100 MG/NS 250 ML 100 MG/250 ML BAG 250 MG IVPB (21:00)
[2021-09-21] MEDS: amLODIPine BESYLATE 5 MG TABLET PO (21:00)
[2021-09-21 21:26] LABS: Glucose Point of Care 228 mg/dl (65-105)
[2021-09-22] VITALS (15 sets, daily range): BP systolic 130–140; BP diastolic 51–65; PULSE 64–103; RESP 16–20; TEMP 35.6–36.3; O2SAT 83–99
--- NOTE | 2021-09-22 02:02 | PC.NURSE ---
pt spO2 was at 83%, respiratory was called and pt is now on 10L high flow and 10L non-rebreather through the N/C. PT is now at 98%. Dr. James informed about pt change in respiratory status and the plan is to transfer pt to IMU for pt to be on continuous BIPAP. Will continue to monitor pt
[2021-09-22 06:01] LABS: Alanine Aminotransferase 72 U/L (4-35); Albumin Level 3.4 g/dL (3.5-5.1); Alkaline Phosphatase 540 U/L (38-126); Anion Gap 9 mmol/L (8-16); Aspartate Amino Transferase 37 U/L (14-36); Bilirubin,Total 0.7 mg/dL (0.2-1.3); Blood Urea Nitrogen 32 mg/dL (7-17); Calcium 9.1 mg/dL (8.4-10.2); Carbon Dioxide 28 mmol/L (22-30); Chloride 99 mmol/L (98-107); Estimated CRCL calculation 53 ml/min; Estimated Glomerular Filt Rate > 60; Glucose 141 mg/dL (65-110); Sodium 136 mmol/L (137-145)
[2021-09-22 06:10] LABS: NT Pro B Type Natriuretic Pept 180 pg/mL (5-100)
[2021-09-22 08:28] LABS: Glucose Point of Care 107 mg/dl (65-105)
[2021-09-22] MEDS: APIXABAN 5 MG TABLET 10 MG PO ×2 (08:49→21:41)
[2021-09-22] MEDS: INSULIN ASPART (*BKC) 100 UNITS/ML SUB-Q ×5 (08:49→17:07)
[2021-09-22] MEDS: OMEGA 3 POLYUNSAT FATTY ACIDS 1 GM CAP PO (08:50)
[2021-09-22] MEDS: SACCHAROMYCES BOULARDII 250 MG CAPSULE PO ×2 (08:50→21:42)
[2021-09-22] MEDS: FLUoxetine HCL 20 MG CAPSULE 40 MG PO (08:50)
[2021-09-22] MEDS: MAGNESIUM OXIDE 400 MG TABLET PO (08:50)
[2021-09-22] MEDS: PANTOPRAZOLE SODIUM IV 40 MG VIAL IV PUSH ×2 (08:50→21:41)
[2021-09-22] MEDS: CYANOCOBALAMIN 1,000 MCG TABLET 1000 MCG PO (08:50)
[2021-09-22] MEDS: BACLOFEN 10 MG TABLET PO (08:53)
[2021-09-22] MEDS: ALBUTEROL SULFATE (*SP) INHALER 2 PUFF INHALATION ×4 (09:34→20:51)
--- NOTE | 2021-09-22 11:36 | PM.IMPN ---
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 Patient has a history of liver laceration while having a cholecystectomy done years ago. Afterwards she required multiple biliary stents to be placed for 4-5 years until her liver functions normalized. She states her liver functions have been normal until she was informed of the elevation during this hospitalization. Hepatitis panel was negative CT abdomen pelvis 09/08 showed normal appearing liver Right upper quadrant ultrasound was normal MRCP 09/17 showing thrombosis of hepatic arteries in anterior segment right hepatic lobe. Abnormal signal in anterior segment right hepatic lobe, consistent with ischemia/infarct. Radiologist said that the patient did have the hepatic artery thrombus on admission by CT scan and MRCP currently showing that it is unchanged. He said that the ischemic/infarct area would not have shown up on the CT scan which is why it was not noted initially, but is showing up on the MRI which is not uncommon. Ground Crewman Mission Support was called who recommended starting Eliquis for treatment of her hepatic thrombus. He will follow her up in the office in 1 week and monitor her labs and further workup for a coagulopathy issue. He will also order imaging in a few months to further evaluate her thrombus as an outpatient. LFT elevation could also be related (at least in part) to the COVID infection. Continue monitoring. Continue Eliquis (4) Sepsis: Qualifiers: Acute renal failure type: unspecified Sepsis acute organ dysfunction status: with acute organ dysfunction Sepsis type: sepsis due to unspecified organism Severe sepsis acute organ dysfunction type: acute renal failure Severe sepsis shock status: without septic shock Qualified Code(s): A41.9 - Sepsis, unspecified organism; R65.20 - Severe sepsis without septic shock; N17.9 - Acute kidney failure, unspecified Code(s): A41.9 - Sepsis, unspecified organism Status: Acute Assessment and Plan: Patient met criteria for sepsis with low blood pressure 90/60, tachycardia at 112, leukocytosis at 20,000, bandemia and elevated lactic acids. Patient completed a course of IV Zosyn; she tolerated it well other than some diarrhea. Continue a probiotic. Urine culture results showed no growth at this time. Blood cultures negative Infection resolved. (5) Acute UTI: Code(s): N39.0 - Urinary tract infection, site not specified Status: Acute Assessment and Plan: As above (6) Essential hypertension: Code(s): I10 - Essential (primary) hypertension Status: Acute Assessment and Plan: Patient's blood pressure was reviewed on 09/22 Blood pressure remains well controlled. Continue current medications. (7) Elevated LFTs: Code(s): R79.89 - Other specified abnormal findings of blood chemistry Status: Acute Assessment and Plan: Trending
[2021-09-22 12:09] LABS: Glucose Point of Care 226 mg/dl (65-105)
[2021-09-22] MEDS: HYDROcodone/acetaminophen (*CRX) 10-325 MG TABLET 1 TAB PO ×2 (15:05→21:56)
[2021-09-22 20:23] LABS: Glucose Point of Care 274 mg/dl (65-105)
[2021-09-22] MEDS: BACLOFEN 10 MG TABLET 20 MG PO (21:41)
[2021-09-22] MEDS: SIMVASTATIN 20 MG TABLET PO (21:42)
[2021-09-22] MEDS: amLODIPine BESYLATE 5 MG TABLET PO (21:42)
[2021-09-22] MEDS: INSULIN GLARGINE (*BKC) 100 UNITS/ML 9 UNITS SUB-Q (21:44)
[2021-09-22 21:55] LABS: Glucose Point of Care 316 mg/dl (65-105)
[2021-09-23] VITALS (10 sets, daily range): BP systolic 133–134; BP diastolic 62–64; PULSE 62–98; RESP 16–24; TEMP 36.3–36.5; O2SAT 93–99
[2021-09-23 08:15] LABS: Glucose Point of Care 148 mg/dl (65-105)
[2021-09-23] MEDS: ALBUTEROL SULFATE (*SP) INHALER 2 PUFF INHALATION ×4 (08:16→19:21)
[2021-09-23 09:33] LABS: Hematocrit 41.5 % (37.0-47.0); Hemoglobin 13.5 g/dL (12.0-15.0); Mean Corpuscular HGB Conc 32.5 g/dl (32-36); Mean Corpuscular Hemoglobin 30.3 pg (26-34); Mean Corpuscular Volume 93.3 fl (80-100); Mean Platelet Volume 9.8 fl (7.4-10.4); Platelet Count Result 588 k/mm3 (150-375); Red Blood Count 4.45 M/mm3 (4.2-5.4); White Blood Count 15.2 K/mm3 (4.5-10.0)
[2021-09-23] MEDS: INSULIN ASPART (*BKC) 100 UNITS/ML SUB-Q ×5 (09:45→16:56)
[2021-09-23] MEDS: FLUoxetine HCL 20 MG CAPSULE 40 MG PO (09:46)
[2021-09-23] MEDS: PANTOPRAZOLE SODIUM IV 40 MG VIAL IV PUSH ×2 (09:46→20:26)
[2021-09-23] MEDS: OMEGA 3 POLYUNSAT FATTY ACIDS 1 GM CAP PO (09:47)
[2021-09-23] MEDS: CYANOCOBALAMIN 1,000 MCG TABLET 1000 MCG PO (09:47)
[2021-09-23] MEDS: MAGNESIUM OXIDE 400 MG TABLET PO (09:47)
[2021-09-23] MEDS: SACCHAROMYCES BOULARDII 250 MG CAPSULE PO ×2 (09:47→20:24)
[2021-09-23] MEDS: APIXABAN 5 MG TABLET 10 MG PO ×2 (09:47→20:25)
[2021-09-23 09:48] LABS: Alanine Aminotransferase 51 U/L (4-35); Albumin Level 3.5 g/dL (3.5-5.1); Alkaline Phosphatase 516 U/L (38-126); Anion Gap 10 mmol/L (8-16); Aspartate Amino Transferase 29 U/L (14-36); Bilirubin,Total 0.9 mg/dL (0.2-1.3); Blood Urea Nitrogen 37 mg/dL (7-17); CRP 5.3 mg/dL (<1.0); Calcium 9.7 mg/dL (8.4-10.2); Carbon Dioxide 29 mmol/L (22-30); Chloride 96 mmol/L (98-107); Estimated CRCL calculation 59 ml/min; Estimated Glomerular Filt Rate > 60; Glucose 190 mg/dL (65-110); Potassium 3.9 mmol/L (3.4-5.0); Sodium 135 mmol/L (137-145)
[2021-09-23] MEDS: BACLOFEN 10 MG TABLET PO (09:49)
--- NOTE | 2021-09-23 10:17 | P.PNIM_ITS ---
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 Patient has a history of liver laceration while having a cholecystectomy done years ago. Afterwards she required multiple biliary stents to be placed for 4-5 years until her liver functions normalized. She states her liver functions have been normal until she was informed of the elevation during this hospitalization. * Hepatitis panel was negative * CT abdomen pelvis 09/08 showed normal appearing liver * Right upper quadrant ultrasound was normal * MRCP 09/17 showing thrombosis of hepatic arteries in anterior segment right hepatic lobe. Abnormal signal in anterior segment right hepatic lobe, consistent with ischemia/infarct. Radiologist said that the patient did have the hepatic artery thrombus on admission by CT scan and MRCP currently showing that it is unchanged. He said that the ischemic/infarct area would not have shown up on the CT scan which is why it was not noted initially, but is showing up on the MRI which is not uncommon. * Inpatient Nursing Aide was called who recommended starting Eliquis for treatment of her hepatic thrombus. He will follow her up in the office in 1 week and monitor her labs and further workup for a coagulopathy issue. He will also order imaging in a few months to further evaluate her thrombus as an outpatient. * LFT elevation could also be related (at least in part) to the COVID infection. * Continue monitoring. * Continue Eliquis (4) Sepsis: Qualifiers: Acute renal failure type: unspecified Sepsis acute organ dysfunction status: with acute organ dysfunction Sepsis type: sepsis due to unspecified organism Severe sepsis acute organ dysfunction type: acute renal failure Severe sepsis shock status: without septic shock Qualified Code(s): A41.9 - Sepsis, unspecified organism; R65.20 - Severe sepsis without septic shock; N17.9 - Acute kidney failure, unspecified Code(s): A41.9 - Sepsis, unspecified organism Status: Acute Assessment and Plan: Patient met criteria for sepsis with low blood pressure 90/60, tachycardia at 112, leukocytosis at 20,000, bandemia and elevated lactic acids. * Patient completed a course of IV Zosyn; she tolerated it well other than some diarrhea. * Continue a probiotic. * Urine culture results showed no growth at this time. * Blood cultures negative * Infection resolved. (5) Acute UTI: Code(s): N39.0 - Urinary tract infection, site not specified Status: Acute Assessment and Plan: As above (6) Essential hypertension: Code(s): I10 - Essential (primary) hypertension Status: Acut
[2021-09-23 12:13] LABS: Glucose Point of Care 292 mg/dl (65-105)
[2021-09-23 17:08] LABS: Glucose Point of Care 277 mg/dl (65-105)
[2021-09-23] MEDS: amLODIPine BESYLATE 5 MG TABLET PO (20:24)
[2021-09-23] MEDS: BACLOFEN 10 MG TABLET 20 MG PO (20:25)
[2021-09-23] MEDS: HYDROcodone/acetaminophen (*CRX) 10-325 MG TABLET 1 TAB PO (20:25)
[2021-09-23] MEDS: ALPRAZolam (*CRX) 0.5 MG TABLET PO (20:25)
[2021-09-23] MEDS: SIMVASTATIN 20 MG TABLET PO (20:25)
[2021-09-23] MEDS: INSULIN GLARGINE (*BKC) 100 UNITS/ML 9 UNITS SUB-Q (20:26)
[2021-09-23 23:50] LABS: Glucose Point of Care 237 mg/dl (65-105)
[2021-09-24] VITALS (10 sets, daily range): BP systolic 124–130; BP diastolic 57–62; PULSE 76–92; RESP 18–24; TEMP 36.6–36.8; O2SAT 91–100
[2021-09-24 06:05] LABS: Hematocrit 38.1 % (37.0-47.0); Hemoglobin 12.5 g/dL (12.0-15.0); Mean Corpuscular HGB Conc 32.8 g/dl (32-36); Mean Corpuscular Hemoglobin 30.7 pg (26-34); Mean Corpuscular Volume 93.6 fl (80-100); Mean Platelet Volume 9.6 fl (7.4-10.4); Platelet Count Result 549 k/mm3 (150-375); Red Blood Count 4.07 M/mm3 (4.2-5.4); Red Cell Distribution Width 14.7 % (11.5-14.5)
[2021-09-24 06:20] LABS: Alanine Aminotransferase 38 U/L (4-35); Albumin Level 3.1 g/dL (3.5-5.1); Alkaline Phosphatase 390 U/L (38-126); Anion Gap 7 mmol/L (8-16); Aspartate Amino Transferase 33 U/L (14-36); Bilirubin,Total 0.7 mg/dL (0.2-1.3); Blood Urea Nitrogen 40 mg/dL (7-17); Calcium 9.8 mg/dL (8.4-10.2); Carbon Dioxide 31 mmol/L (22-30); Chloride 97 mmol/L (98-107); Estimated CRCL calculation 59 ml/min; Estimated Glomerular Filt Rate > 60; Glucose 174 mg/dL (65-110); Potassium 4.6 mmol/L (3.4-5.0); Sodium 135 mmol/L (137-145)
[2021-09-24] MEDS: ALBUTEROL SULFATE (*SP) INHALER 2 PUFF INHALATION ×2 (07:56→12:52)
[2021-09-24] MEDS: APIXABAN 5 MG TABLET 10 MG PO (07:57)
[2021-09-24] MEDS: FLUoxetine HCL 20 MG CAPSULE 40 MG PO (07:58)
[2021-09-24] MEDS: MAGNESIUM OXIDE 400 MG TABLET PO (07:58)
[2021-09-24] MEDS: CYANOCOBALAMIN 1,000 MCG TABLET 1000 MCG PO (07:58)
[2021-09-24] MEDS: PANTOPRAZOLE SODIUM IV 40 MG VIAL IV PUSH (07:58)
[2021-09-24] MEDS: OMEGA 3 POLYUNSAT FATTY ACIDS 1 GM CAP PO (07:58)
[2021-09-24] MEDS: SACCHAROMYCES BOULARDII 250 MG CAPSULE PO (07:58)
[2021-09-24] MEDS: BACLOFEN 10 MG TABLET PO (08:03)
[2021-09-24] MEDS: INSULIN ASPART (*BKC) 100 UNITS/ML SUB-Q ×3 (08:03→11:36)
[2021-09-24 08:11] LABS: Glucose Point of Care 176 mg/dl (65-105)
[2021-09-24] MEDS: HYDROcodone/acetaminophen (*CRX) 10-325 MG TABLET 1 TAB PO (11:32)
[2021-09-24 11:41] LABS: Glucose Point of Care 340 mg/dl (65-105)
[2021-09-24 11:41] LABS: Glucose Point of Care 442 mg/dl (65-105)
[2021-09-24 11:41] LABS: Glucose Point of Care 312 mg/dl (65-105)
[2021-09-24 11:41] LABS: Glucose Point of Care 289 mg/dl (65-105)
--- NOTE | 2021-09-24 13:57 | PCNWS ---
Weekly nutritional screen. Patient is tolerating current diet with adequate intake of 50-100% of meals. No weight loss reported. No nutritional needs at this time.
--- NOTE | 2021-09-24 14:18 | PM.DS ---
DS: Admitting Diagnosis Discharge Date 09/24/21 Admitting Diagnosis Weakness DS: Discharge Diagnosis Discharge Diagnosis (1) Acute respiratory failure with hypoxia: Code(s): J96.01 - Acute respiratory failure with hypoxia Status: Acute Assessment and Plan: 09/13/21: Patient was found to be hypoxic at 88% on room air. She was put on 2 L of oxygen. CXR with worsened airspace opacities in the lower lung zones, consistent with atelectasis versus pneumonia. She was given IV Lasix 20 mg daily (09/13-09/16) with improvement to her leg swelling/breathing. 09/17/21-patient is a 92% 2L via NC and COVID PCR was positive. The patient was placed in COVID isolation and started IV remdesivir and dexamethasone. Chest x-ray 09/24 showing bilateral airspace disease. Her O2 requirements worsened. Options were discussed including hospice but other providers. She met with hospice over the weekend. Today, she wished to proceed with hospice and has requested [facility]. She wishes to be discharged home with hospice. This was arranged and patient was discharged home today on hospice. was involved in the discussion and is agreeable with this plan. (2) Pneumonia due to COVID-19 virus: Code(s): U07.1 - COVID-19; J12.82 - Pneumonia due to coronavirus disease 2018 Status: Acute Assessment and Plan: Patient presented with weakness and diarrhea on 09/08/21. CXR clear on 09/08 but showing worsening bibasilar airspace opacities by CXR on 09/13/21. Low grade fever on 09/16/21. She tested positive for COVID-19 09/17/21. Unclear if this was present on admission. Anti-inflammatory markers noted with CRP worsened. She was treated with IV dexamethasone and remdesivir. 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 Patient has a history of liver laceration while having a cholecystectomy done years ago. Afterwards she required multiple biliary stents to be placed for 4-5 years until her liver functions normalized. She states her liver functions have been normal until she was informed of the elevation during this hospitalization. Hepatitis panel was negative CT abdomen pelvis 09/08 showed normal appearing liver Right upper quadrant ultrasound was normal MRCP 09/17 showing thrombosis of hepatic arteries in anterior segment right hepatic lobe. Abnormal signal in anterior segment right hepatic lobe, consistent with ischemia/infarct. Radiologist said that the patient did have the hepatic artery thrombus on admission by CT scan and MRCP currently showing that it is unchanged. He said that the ischemic/infarct area would not have shown up on the CT scan which is why it was not noted initially, but is showing up on the MRI which is not uncommon. Commissary Steward was called who recommended starting Eliquis for treatment of her hepatic thrombus. He will follow her up in the office in 1 week and monitor her labs and further workup for a coagulopathy issue. He will also order imaging in a few months to further evaluate her thrombus as an outpatient. LFT elevation could also be related (at least in part) to the COVID infection. We continued Eliquis while here. (4) Sepsis: Qualifiers: Acute renal failure type: unspecified Sepsis acute organ dysfunction status: with acute organ dysfunction Sepsis type: sepsis due to unspecified organism Severe sepsis acute organ dysfunction type: acute renal failure Severe sepsis shock status: without septic shock Qualified Code(s): A41.9 - Sepsis, unspecified organism; R65.20 - Severe sepsis without septic shock; N17.9 - Acute kidney failure, unspecified Co
[2021-09-24 17:09] LABS: Glucose Point of Care 237 mg/dl (65-105)
== END 2021-09-24 17:10 | disposition hospice, home (50) | DRG 871 ==
LOC: ANHED 22:52 → ANHIMU 22:57 → ANH3MED 09-10 16:14 → ANHIMU 09-25 11:23
PROVIDERS: Emergency Medicine; Internal Medicine; Admitting Provider Internal Medicine; Emergency Provider Emergency Medicine; PCP Family Medicine; Visit Provider Physician Assistant
DX: A41.9 Sepsis, unspecified organism (principal); U07.1 COVID-19; J12.82 Pneumonia due to coronavirus disease 2019; J96.01 Acute respiratory failure with hypoxia; J18.9 Pneumonia, unspecified organism; J98.11 Atelectasis; N17.9 Acute kidney failure, unspecified; I74.8 Embolism and thrombosis of other arteries; G36.0 Neuromyelitis optica [Devic]; R65.20 Severe sepsis without septic shock; E11.9 Type 2 diabetes mellitus without complications; I10 Essential (primary) hypertension; E87.6 Hypokalemia; G47.33 Obstructive sleep apnea (adult) (pediatric); M81.0 Age-related osteoporosis without current pathological fracture; Z87.891 Personal history of nicotine dependence; Z90.49 Acquired absence of other specified parts of digestive tract
CPT/HCPCS: 36415; 51701; 71045; 71046; 74177; 74183; 76376; 76705; 80048; 80053; 80074; 81001; 82550; 82728; 82948; 83036; 83605; 83615; 83735; 83880; 84100; 85025; 85027; 85055; 85610; 85730; 86140; 87040; 87086; 93306; 94640; 94667; 96361; 96365; 96366; 96367; 97110; 97116; 97162; 97165; 97530; 97535; 99285; A9270; A9577; C9113; C9803; G0378; J0696; J1100; J1644; J1815; J1940; J2270; J2405; J2543; J3475; J3480; J7030; J7040; Q9967; U0003; U0005